=== PATIENT | female | born 1960 | race Caucasian/White ===

== ENCOUNTER 2017-06-01 20:24 | Inpatient (IN) | payer OTHER ==
[2017-06-01] MEDS ORDERED: NACL 0.9% 3 ML SYG IV (23:00)
[2017-06-01 23:46] LABS: ADD MAN DIFF? NO
[2017-06-01 23:49] LABS: BASOPHILS % 0.3 % (0.0-2.0); EOSINOPHILS # 0.2 10^3/ul (0.0-0.5); EOSINOPHILS % 1.8 % (0.0-7.0); HEMATOCRIT 25.7 % (37.0-47.0); LYMPHOCYTES % 18.4 % (15.0-51.0); MEAN CORPUSCULAR HEMOGLOBIN 27.3 pg (29.0-33.0); MEAN CORPUSCULAR HGB CONC 31.1 g/dl (32.0-37.0); MEAN CORPUSCULAR VOLUME 87.7 fl (82.0-101.0); MEAN PLATELET VOLUME 9.5 fl (7.4-10.4); MONOCYTE # 0.8 10^3/ul (0.3-0.9); MONOCYTES % 7.5 % (0.0-11.0); NEUTROPHIL # 7.8 10^3/ul (1.6-7.5); NEUTROPHILS % 70.7 % (39.0-77.0); PLATELET COUNT 322 10^3/UL (140-415); RED BLOOD COUNT 2.93 10^6/ul (4.20-5.40); RED CELL DISTRIBUTION WIDTH 14.1 % (11.5-14.5)
[2017-06-01 23:57] LABS: HEMOGLOBIN A1C 8.5 % (0-5.9)
[2017-06-02 00:12] LABS: CREATINE KINASE 26 IU/L (23-200)
[2017-06-02 00:16] LABS: ALANINE AMINOTRANSFERASE 63 IU/L (13-69); ALBUMIN 3.3 g/dl (3.3-4.9); ALBUMIN/GLOBULIN RATIO 1.06; ALKALINE PHOSPHATASE 249 IU/L (42-121); ANION GAP 18 (8-16); ASPARTATE AMINO TRANSFERASE 26 IU/L (15-46); BLOOD UREA NITROGEN 53 mg/dl (7-20); CALCIUM 8.9 mg/dl (8.4-10.2); CARBON DIOXIDE 26 mmol/L (21-31); CHLORIDE 103 mmol/L (97-110); CHOL/HDL RATIO 5.3 RATIO; CHOLESTEROL 112 mg/dl (100-200); CREATININE 1.41 mg/dl (0.44-1.00); GLUCOSE 173 mg/dl (70-220); HDL CHOLESTEROL 21 mg/dl (37-92); LDL CHOLESTEROL,CALCULATED 59 mg/dl; MAGNESIUM 2.3 mg/dl (1.7-2.5); POTASSIUM 5.4 mmol/L (3.5-5.1); SODIUM 142 mmol/L (135-144); TOTAL PROTEIN 6.4 g/dl (6.1-8.1); TRIGLYCERIDES 161 mg/dl (0-149)
[2017-06-02 00:23] LABS: CK INDEX 2.1; CK-MB 0.54 ng/ml (0.0-2.4)
[2017-06-02 00:28] LABS: TROPONIN-I < 0.012 ng/ml (0.00-0.12)
[2017-06-02] MEDS: SOD CHLORIDE 0.9% 1,000 ML IV ×2 (00:55→12:30)
[2017-06-02] MEDS ORDERED: TEMAZEPAM 15 MG CAP PO (02:30)
[2017-06-02] MEDS: NA POLYST SULFON 15 GM/60 ML BTL PO (03:25)
[2017-06-02] MEDS: morphine 2 MG INJ IV (03:26)
[2017-06-02] MEDS: ONDANSETRON 4 MG INJ IV (03:26)
[2017-06-02 06:11] LABS: LACTIC ACID 1.1 mmol/L (0.5-2.0)
[2017-06-02 06:18] LABS: CREATINE KINASE 29 IU/L (23-200); IRON 33 ug/dl (35-150)
[2017-06-02 06:27] LABS: % IRON SATURATION 15 % SAT (22-52); TOTAL IRON BINDING CAPACITY 227 ug/dl (241-421)
[2017-06-02 06:31] LABS: CK INDEX 2.7; CK-MB 0.79 ng/ml (0.0-2.4)
[2017-06-02 06:33] LABS: TROPONIN-I < 0.012 ng/ml (0.00-0.12)
[2017-06-02 06:33] LABS: D-DIMER 1879.59 ng/ml (<460)
[2017-06-02] MEDS: PANTOPRAZOLE (EC) 40 MG TAB PO (06:50)
[2017-06-02 08:59] LABS: GAMMA GLUTAMYL TRANSPEPTIDASE 100 IU/L (0-50)
[2017-06-02] MEDS ORDERED: HEPARIN 1000 UNITS/ML 10 ML INJ IV ×2 (09:00)
[2017-06-02 09:11] LABS: B-TYPE NATRIURETIC PEPTIDE 345 PG/ML (0-125)
[2017-06-02] MEDS: INSULIN ASPART [NOVOLOG] 3 ML PEN SC ×4 (09:24→20:44)
[2017-06-02] MEDS: INSULIN GLARGINE [LANtus] 3 ML PEN SC (09:49)
[2017-06-02] MEDS: SOD CHLORIDE 0.9% 100 ML (09:58)
[2017-06-02] MEDS: IODIXANOL LOCM 100 ML BTL (10:00)
[2017-06-02] MEDS: NYSTATIN 30 GM POWDER BTL TOP ×3 (10:12→20:43)
[2017-06-02] MEDS: ESCITALOPRAM 10 MG TAB PO (10:12)
[2017-06-02] MEDS: GEMFIBROZIL 600 MG TAB PO ×2 (10:13→20:43)
[2017-06-02] MEDS: ASPIRIN 81 MG TAB PO (10:14)
[2017-06-02] MEDS: ASPIRIN (EC) 81 MG TAB PO (10:14)
[2017-06-02] MEDS: ARIPIPRAZOLE 5 MG TAB PO (10:14)
[2017-06-02] MEDS: BENZTROPINE 1 MG TAB PO ×2 (10:14→20:43)
[2017-06-02] MEDS: FOLIC ACID 1 MG TAB PO (10:14)
[2017-06-02] MEDS: METOPROLOL (XL) 25 MG TAB PO (10:15)
[2017-06-02] MEDS: LAMOTRIGINE 100 MG TAB PO ×2 (10:15→20:43)
[2017-06-02] MEDS: AMLODIPINE 5 MG TAB PO (10:15)
[2017-06-02] MEDS: ALBUTEROL HFA 8 GM INHALER INH ×2 (10:21→20:00)
[2017-06-02] MEDS: HEPARIN 1000 UNITS/ML 10 ML INJ IV (10:37)
[2017-06-02] MEDS: HEPARIN 25000 UNITS/250 ML 250 ML IV (10:37)
[2017-06-02] MEDS ORDERED: morphine LIQ (10 MG/5 ML) CUP PO (14:00)
[2017-06-02 15:37] LABS: TROPONIN-I < 0.012 ng/ml (0.00-0.12)
[2017-06-02] MEDS: ATORVASTATIN 40 MG TAB PO (20:42)
[2017-06-02] MEDS: FERROUS SULFATE (EC) 325 MG TAB PO (20:42)
[2017-06-02] MEDS: RANITIDINE 150 MG TAB PO (20:42)
[2017-06-02] MEDS: RISPERIDONE 1 MG TAB PO (20:43)
[2017-06-02 22:33] LABS: ADD UMIC YES; UR ASCORBIC ACID NEGATIVE (NEGATIVE); UR BACTERIA FEW /HPF (NONE SEEN); UR BILIRUBIN (Dip) NEGATIVE (NEGATIVE); UR BLOOD (Dip) NEGATIVE (NEGATIVE); UR CLARITY CLEAR (CLEAR); UR COLOR YELLOW (YELLOW); UR GLUCOSE (Dip) NEGATIVE (NEGATIVE); UR KETONES (Dip) NEGATIVE (NEGATIVE); UR LEUKOCYTE ESTERASE (Dip) 2+ Leu/ul (NEGATIVE); UR MUCUS FEW /HPF (NONE SEEN); UR NITRITE (Dip) POSITIVE (NEGATIVE); UR RBC 1 /HPF (0-5); UR SPECIFIC GRAVITY (Dip) 1.024 (1.003-1.030); UR SQUAMOUS EPITHELIAL CELL FEW /HPF (FEW); UR TOTAL PROTEIN (Dip) NEGATIVE (NEGATIVE); UR UROBILINOGEN (Dip) NEGATIVE (NEGATIVE); UR WBC 22 /HPF (0-5)
[2017-06-02 22:48] LABS: CREATININE,URINE RANDOM 75.97 mg/dl (20-320)
[2017-06-02 22:48] LABS: SODIUM,URINE RANDOM 59 mmol/L (30-90)
[2017-06-03] MEDS: ACCU-CHEK XX (01:53)
[2017-06-03] MEDS: ALBUTEROL HFA 8 GM INHALER INH ×3 (02:00→20:17)
[2017-06-03] MEDS: PANTOPRAZOLE (EC) 40 MG TAB PO (06:29)
[2017-06-03 07:20] LABS: ADD MAN DIFF? NO
[2017-06-03 07:23] LABS: WHITE BLOOD COUNT 10.3 10^3/ul (4.8-10.8)
[2017-06-03 07:23] LABS: BASOPHILS % 0.3 % (0.0-2.0); EOSINOPHILS # 0.4 10^3/ul (0.0-0.5); EOSINOPHILS % 4.2 % (0.0-7.0); HEMATOCRIT 26.9 % (37.0-47.0); LYMPHOCYTES # 2.1 10^3/ul (0.8-2.9); LYMPHOCYTES % 20.4 % (15.0-51.0); MEAN CORPUSCULAR HEMOGLOBIN 27.3 pg (29.0-33.0); MEAN CORPUSCULAR HGB CONC 29.7 g/dl (32.0-37.0); MEAN CORPUSCULAR VOLUME 91.8 fl (82.0-101.0); MEAN PLATELET VOLUME 9.3 fl (7.4-10.4); MONOCYTE # 0.8 10^3/ul (0.3-0.9); MONOCYTES % 7.7 % (0.0-11.0); NEUTROPHIL # 6.7 10^3/ul (1.6-7.5); NEUTROPHILS % 65.6 % (39.0-77.0); PLATELET COUNT 334 10^3/UL (140-415); RED BLOOD COUNT 2.93 10^6/ul (4.20-5.40); RED CELL DISTRIBUTION WIDTH 14.4 % (11.5-14.5)
[2017-06-03 07:46] LABS: ANION GAP 14 (8-16); BLOOD UREA NITROGEN 43 mg/dl (7-20); CALCIUM 9.5 mg/dl (8.4-10.2); CARBON DIOXIDE 32 mmol/L (21-31); CHLORIDE 104 mmol/L (97-110); CREATININE 1.31 mg/dl (0.44-1.00); GLUCOSE 135 mg/dl (70-220); MAGNESIUM 2.2 mg/dl (1.7-2.5); PHOSPHORUS 4.3 mg/dl (2.5-4.9); POTASSIUM 5.4 mmol/L (3.5-5.1); SODIUM 145 mmol/L (135-144)
[2017-06-03] MEDS: FERROUS SULFATE (EC) 325 MG TAB PO ×2 (08:42→20:04)
[2017-06-03] MEDS: ARIPIPRAZOLE 5 MG TAB PO (08:42)
[2017-06-03] MEDS: ESCITALOPRAM 10 MG TAB PO (08:42)
[2017-06-03] MEDS: ASPIRIN (EC) 81 MG TAB PO (08:42)
[2017-06-03] MEDS: GEMFIBROZIL 600 MG TAB PO ×2 (08:42→20:03)
[2017-06-03] MEDS: METOPROLOL (XL) 25 MG TAB PO (08:43)
[2017-06-03] MEDS: LAMOTRIGINE 100 MG TAB PO ×2 (08:43→20:03)
[2017-06-03] MEDS: ASPIRIN 81 MG TAB PO (08:43)
[2017-06-03] MEDS: FOLIC ACID 1 MG TAB PO (08:43)
[2017-06-03] MEDS: AMLODIPINE 5 MG TAB PO (08:43)
[2017-06-03] MEDS: BENZTROPINE 1 MG TAB PO ×2 (08:43→20:03)
[2017-06-03] MEDS: NYSTATIN 30 GM POWDER BTL TOP ×2 (08:44→20:06)
[2017-06-03] MEDS: INSULIN ASPART [NOVOLOG] 3 ML PEN SC ×4 (08:59→20:13)
[2017-06-03] MEDS: INSULIN GLARGINE [LANtus] 3 ML PEN SC (09:00)
[2017-06-03] MEDS: CALCIUM/VITAMIN D (500/200) TAB PO (20:03)
[2017-06-03] MEDS: RISPERIDONE 1 MG TAB PO (20:04)
[2017-06-03] MEDS: ACETAMINOPHEN 325 MG TAB PO (20:04)
[2017-06-03] MEDS: RANITIDINE 150 MG TAB PO (20:04)
[2017-06-03] MEDS: ATORVASTATIN 40 MG TAB PO (20:04)
[2017-06-04] MEDS: ACCU-CHEK XX (02:00)
[2017-06-04] MEDS: ALBUTEROL HFA 8 GM INHALER INH ×4 (02:00→20:47)
[2017-06-04 06:27] LABS: ADD MAN DIFF? NO
[2017-06-04 06:36] LABS: WHITE BLOOD COUNT 10.1 10^3/ul (4.8-10.8)
[2017-06-04 06:36] LABS: BASOPHILS % 0.4 % (0.0-2.0); EOSINOPHILS # 0.6 10^3/ul (0.0-0.5); EOSINOPHILS % 5.9 % (0.0-7.0); HEMATOCRIT 28.7 % (37.0-47.0); HEMOGLOBIN 8.6 g/dl (12.0-16.0); LYMPHOCYTES # 2.7 10^3/ul (0.8-2.9); LYMPHOCYTES % 27.1 % (15.0-51.0); MEAN CORPUSCULAR VOLUME 90.3 fl (82.0-101.0); MEAN PLATELET VOLUME 9.3 fl (7.4-10.4); MONOCYTE # 0.7 10^3/ul (0.3-0.9); MONOCYTES % 6.7 % (0.0-11.0); NEUTROPHIL # 5.8 10^3/ul (1.6-7.5); NEUTROPHILS % 57.7 % (39.0-77.0); PLATELET COUNT 342 10^3/UL (140-415); RED BLOOD COUNT 3.18 10^6/ul (4.20-5.40); RED CELL DISTRIBUTION WIDTH 14.2 % (11.5-14.5)
[2017-06-04 07:02] LABS: ANION GAP 17 (8-16); BLOOD UREA NITROGEN 40 mg/dl (7-20); CALCIUM 9.6 mg/dl (8.4-10.2); CARBON DIOXIDE 29 mmol/L (21-31); CHLORIDE 106 mmol/L (97-110); CREATININE 1.37 mg/dl (0.44-1.00); GLUCOSE 157 mg/dl (70-220); MAGNESIUM 2.1 mg/dl (1.7-2.5); PHOSPHORUS 4.6 mg/dl (2.5-4.9); SODIUM 147 mmol/L (135-144)
[2017-06-04 07:04] LABS: POTASSIUM 5.3 mmol/L (3.5-5.1)
[2017-06-04] MEDS: CYANOCOBALAMIN 100 MCG TAB PO (08:43)
[2017-06-04] MEDS: LAMOTRIGINE 100 MG TAB PO ×2 (08:43→20:51)
[2017-06-04] MEDS: ASPIRIN (EC) 81 MG TAB PO (08:44)
[2017-06-04] MEDS: ESCITALOPRAM 10 MG TAB PO (08:44)
[2017-06-04] MEDS: GEMFIBROZIL 600 MG TAB PO ×2 (08:44→20:49)
[2017-06-04] MEDS: BENZTROPINE 1 MG TAB PO ×2 (08:44→20:51)
[2017-06-04] MEDS: PANTOPRAZOLE (EC) 40 MG TAB PO (08:45)
[2017-06-04] MEDS: ARIPIPRAZOLE 5 MG TAB PO (08:45)
[2017-06-04] MEDS: FOLIC ACID 1 MG TAB PO (08:45)
[2017-06-04] MEDS: FERROUS SULFATE (EC) 325 MG TAB PO ×2 (08:45→20:48)
[2017-06-04] MEDS: AMLODIPINE 5 MG TAB PO (08:45)
[2017-06-04] MEDS: METOPROLOL (XL) 25 MG TAB PO (08:46)
[2017-06-04] MEDS: INSULIN ASPART [NOVOLOG] 3 ML PEN SC ×4 (08:47→20:54)
[2017-06-04] MEDS: INSULIN GLARGINE [LANtus] 3 ML PEN SC (08:48)
[2017-06-04] MEDS: NYSTATIN 30 GM POWDER BTL TOP ×2 (11:40→20:52)
[2017-06-04] MEDS: CALCIUM/VITAMIN D (500/200) TAB PO ×2 (11:48→20:49)
[2017-06-04 14:38] LABS: CREATININE, RANDOM URINE 86 mg/dL (20-320); MICROALBUMIN 1.4 mg/dL; MICROALBUMIN/CREATININE RATIO 16 (<30)
[2017-06-04] MEDS: SOD CHLORIDE 0.9% 1,000 ML IV (19:00)
[2017-06-04] MEDS: ACETAMINOPHEN 325 MG TAB PO (20:47)
[2017-06-04] MEDS: RISPERIDONE 1 MG TAB PO (20:48)
[2017-06-04] MEDS: ATORVASTATIN 40 MG TAB PO (20:49)
[2017-06-04] MEDS: RANITIDINE 150 MG TAB PO (20:50)
[2017-06-04] MEDS: morphine 2 MG INJ IV (22:49)
[2017-06-04] MEDS: NITROGLYCERIN (SL) 0.4 MG TAB SL (22:59)
[2017-06-04 23:55] LABS: CREATINE KINASE 23 IU/L (23-200)
[2017-06-05] MEDS ORDERED: NITROGLYCERIN (SL) 0.4 MG TAB SL
[2017-06-05 00:08] LABS: CK INDEX 2.7; CK-MB 0.62 ng/ml (0.0-2.4)
[2017-06-05 00:14] LABS: TROPONIN-I < 0.012 ng/ml (0.00-0.12)
[2017-06-05] MEDS: ACCU-CHEK XX (02:16)
[2017-06-05] MEDS: ALBUTEROL HFA 8 GM INHALER INH ×3 (02:16→14:57)
[2017-06-05] MEDS: SOD CHLORIDE 0.9% 1,000 ML IV ×2 (05:00→14:59)
[2017-06-05] MEDS: PANTOPRAZOLE (EC) 40 MG TAB PO (05:03)
[2017-06-05 07:24] LABS: CREATINE KINASE 21 IU/L (23-200)
[2017-06-05 07:36] LABS: CK-MB 0.84 ng/ml (0.0-2.4)
[2017-06-05 07:41] LABS: TROPONIN-I < 0.012 ng/ml (0.00-0.12)
[2017-06-05] MEDS: INSULIN ASPART [NOVOLOG] 3 ML PEN SC ×4 (07:55→20:54)
[2017-06-05] MEDS: CALCIUM/VITAMIN D (500/200) TAB PO ×2 (09:00→20:40)
[2017-06-05] MEDS: GEMFIBROZIL 600 MG TAB PO ×3 (09:00→20:40)
[2017-06-05] MEDS: FERROUS SULFATE (EC) 325 MG TAB PO ×3 (09:00→20:39)
[2017-06-05] MEDS: ASPIRIN (EC) 81 MG TAB PO ×2 (09:00→15:36)
[2017-06-05] MEDS: CYANOCOBALAMIN 100 MCG TAB PO ×2 (09:00→15:35)
[2017-06-05] MEDS: ARIPIPRAZOLE 5 MG TAB PO ×2 (09:00→15:35)
[2017-06-05] MEDS: ESCITALOPRAM 10 MG TAB PO ×2 (09:00→15:36)
[2017-06-05] MEDS: BENZTROPINE 1 MG TAB PO ×2 (09:00→20:40)
[2017-06-05] MEDS: INSULIN GLARGINE [LANtus] 3 ML PEN SC ×2 (09:00→10:04)
[2017-06-05] MEDS: FOLIC ACID 1 MG TAB PO (09:00)
[2017-06-05] MEDS: METOPROLOL (XL) 25 MG TAB PO ×2 (09:00→15:37)
[2017-06-05] MEDS: LAMOTRIGINE 100 MG TAB PO ×2 (09:00→21:30)
[2017-06-05] MEDS: AMLODIPINE 5 MG TAB PO ×2 (09:00→15:36)
[2017-06-05] MEDS: NYSTATIN 30 GM POWDER BTL TOP ×2 (09:46→21:30)
[2017-06-05] MEDS: REGADENOSON 0.4 MG/5 ML SYG (12:30)
[2017-06-05 14:18] LABS: ANION GAP 18 (8-16); BLOOD UREA NITROGEN 35 mg/dl (7-20); CALCIUM 9.4 mg/dl (8.4-10.2); CARBON DIOXIDE 27 mmol/L (21-31); CHLORIDE 106 mmol/L (97-110); CREATININE 1.29 mg/dl (0.44-1.00); GLUCOSE 123 mg/dl (70-220); POTASSIUM 5.5 mmol/L (3.5-5.1); SODIUM 145 mmol/L (135-144)
[2017-06-05] MEDS: hydrALAzine 20 MG INJ IV (18:34)
[2017-06-05] MEDS: RISPERIDONE 1 MG TAB PO (20:39)
[2017-06-05] MEDS: RANITIDINE 150 MG TAB PO (20:40)
[2017-06-05] MEDS: ATORVASTATIN 40 MG TAB PO (20:40)
[2017-06-06] MEDS: ACCU-CHEK XX (02:00)
[2017-06-06] MEDS: ALBUTEROL HFA 8 GM INHALER INH ×5 (02:00→20:08)
[2017-06-06 06:46] LABS: ANION GAP 18 (8-16); BLOOD UREA NITROGEN 26 mg/dl (7-20); CALCIUM 9.5 mg/dl (8.4-10.2); CARBON DIOXIDE 27 mmol/L (21-31); CHLORIDE 105 mmol/L (97-110); CREATININE 1.04 mg/dl (0.44-1.00); GLUCOSE 128 mg/dl (70-220); MAGNESIUM 1.5 mg/dl (1.7-2.5); PHOSPHORUS 3.5 mg/dl (2.5-4.9); POTASSIUM 5.6 mmol/L (3.5-5.1); SODIUM 144 mmol/L (135-144)
[2017-06-06] MEDS: INSULIN ASPART [NOVOLOG] 3 ML PEN SC ×4 (07:43→21:21)
[2017-06-06] MEDS: CYANOCOBALAMIN 100 MCG TAB PO (08:43)
[2017-06-06] MEDS: ESCITALOPRAM 10 MG TAB PO (08:43)
[2017-06-06] MEDS: PANTOPRAZOLE (EC) 40 MG TAB PO (08:43)
[2017-06-06] MEDS: ARIPIPRAZOLE 5 MG TAB PO (08:43)
[2017-06-06] MEDS: LAMOTRIGINE 100 MG TAB PO ×2 (08:44→21:08)
[2017-06-06] MEDS: BENZTROPINE 1 MG TAB PO ×2 (08:44→21:08)
[2017-06-06] MEDS: FERROUS SULFATE (EC) 325 MG TAB PO ×2 (08:44→21:07)
[2017-06-06] MEDS: FOLIC ACID 1 MG TAB PO (08:44)
[2017-06-06] MEDS: METOPROLOL (XL) 25 MG TAB PO (08:45)
[2017-06-06] MEDS: GEMFIBROZIL 600 MG TAB PO ×2 (08:46→21:07)
[2017-06-06] MEDS: AMLODIPINE 5 MG TAB PO (08:46)
[2017-06-06] MEDS: ASPIRIN (EC) 81 MG TAB PO (08:46)
[2017-06-06] MEDS: CALCIUM/VITAMIN D (500/200) TAB PO ×2 (08:46→21:08)
[2017-06-06] MEDS: NYSTATIN 30 GM POWDER BTL TOP ×2 (08:47→21:09)
[2017-06-06] MEDS: INSULIN GLARGINE [LANtus] 3 ML PEN SC (10:04)
[2017-06-06] MEDS: NA POLYST SULFON 15 GM/60 ML BTL PO (10:22)
[2017-06-06] MEDS ORDERED: HYDROCHLOROTHIAZIDE 12.5 MG CAP PO (12:30)
[2017-06-06] MEDS: HYDROCHLOROTHIAZIDE 25 MG TAB PO (12:52)
[2017-06-06] MEDS: MAGNESIUM SULFATE 4 GM/100 ML 100 ML IVPB (13:20)
[2017-06-06 18:05] LABS: ANION GAP 19 (8-16); BLOOD UREA NITROGEN 26 mg/dl (7-20); CALCIUM 9.2 mg/dl (8.4-10.2); CARBON DIOXIDE 27 mmol/L (21-31); CHLORIDE 105 mmol/L (97-110); CREATININE 1.16 mg/dl (0.44-1.00); GLUCOSE 169 mg/dl (70-220); POTASSIUM 5.6 mmol/L (3.5-5.1); SODIUM 145 mmol/L (135-144)
[2017-06-06 20:24] LABS: POTASSIUM,URINE RANDOM 24.8 mmol/L (25-125)
[2017-06-06] MEDS: RANITIDINE 150 MG TAB PO (21:07)
[2017-06-06] MEDS: RISPERIDONE 1 MG TAB PO (21:08)
[2017-06-06] MEDS: ATORVASTATIN 40 MG TAB PO (21:08)
[2017-06-07] MEDS: ACCU-CHEK XX (02:00)
[2017-06-07] MEDS: ALBUTEROL HFA 8 GM INHALER INH ×3 (02:03→14:58)
[2017-06-07 06:11] LABS: ADD MAN DIFF? NO
[2017-06-07 06:26] LABS: BASOPHILS % 0.3 % (0.0-2.0); EOSINOPHILS # 0.4 10^3/ul (0.0-0.5); EOSINOPHILS % 4.5 % (0.0-7.0); HEMATOCRIT 27.1 % (37.0-47.0); HEMOGLOBIN 8.2 g/dl (12.0-16.0); LYMPHOCYTES # 1.8 10^3/ul (0.8-2.9); LYMPHOCYTES % 19.7 % (15.0-51.0); MEAN CORPUSCULAR HEMOGLOBIN 27.2 pg (29.0-33.0); MEAN CORPUSCULAR HGB CONC 30.3 g/dl (32.0-37.0); MEAN PLATELET VOLUME 9.2 fl (7.4-10.4); MONOCYTE # 0.6 10^3/ul (0.3-0.9); MONOCYTES % 6.9 % (0.0-11.0); NEUTROPHIL # 6.1 10^3/ul (1.6-7.5); NEUTROPHILS % 67.4 % (39.0-77.0); PLATELET COUNT 246 10^3/UL (140-415); RED BLOOD COUNT 3.01 10^6/ul (4.20-5.40); RED CELL DISTRIBUTION WIDTH 14.5 % (11.5-14.5)
[2017-06-07 06:26] LABS: WHITE BLOOD COUNT 9.1 10^3/ul (4.8-10.8)
[2017-06-07 06:55] LABS: ALANINE AMINOTRANSFERASE 65 IU/L (13-69); ALBUMIN 3.4 g/dl (3.3-4.9); ALBUMIN/GLOBULIN RATIO 0.94; ALKALINE PHOSPHATASE 195 IU/L (42-121); ANION GAP 17 (8-16); ASPARTATE AMINO TRANSFERASE 39 IU/L (15-46); BLOOD UREA NITROGEN 22 mg/dl (7-20); CALCIUM 9.4 mg/dl (8.4-10.2); CARBON DIOXIDE 30 mmol/L (21-31); CHLORIDE 105 mmol/L (97-110); CREATININE 1.15 mg/dl (0.44-1.00); GLUCOSE 200 mg/dl (70-220); POTASSIUM 5.4 mmol/L (3.5-5.1); SODIUM 147 mmol/L (135-144)
[2017-06-07 07:02] LABS: PHOSPHORUS 4.6 mg/dl (2.5-4.9)
[2017-06-07 07:02] LABS: MAGNESIUM 2.2 mg/dl (1.7-2.5)
[2017-06-07] MEDS: METOPROLOL (XL) 25 MG TAB PO (08:29)
[2017-06-07] MEDS: ASPIRIN (EC) 81 MG TAB PO (08:30)
[2017-06-07] MEDS: ARIPIPRAZOLE 5 MG TAB PO (08:30)
[2017-06-07] MEDS: FERROUS SULFATE (EC) 325 MG TAB PO (08:30)
[2017-06-07] MEDS: FOLIC ACID 1 MG TAB PO (08:30)
[2017-06-07] MEDS: AMLODIPINE 5 MG TAB PO (08:30)
[2017-06-07] MEDS: GEMFIBROZIL 600 MG TAB PO (08:30)
[2017-06-07] MEDS: ESCITALOPRAM 10 MG TAB PO (08:31)
[2017-06-07] MEDS: BENZTROPINE 1 MG TAB PO (08:31)
[2017-06-07] MEDS: CYANOCOBALAMIN 100 MCG TAB PO (08:31)
[2017-06-07] MEDS: CALCIUM/VITAMIN D (500/200) TAB PO (08:31)
[2017-06-07] MEDS: HYDROCHLOROTHIAZIDE 12.5 MG CAP PO (08:31)
[2017-06-07] MEDS: PANTOPRAZOLE (EC) 40 MG TAB PO (08:32)
[2017-06-07] MEDS: NYSTATIN 30 GM POWDER BTL TOP (08:32)
[2017-06-07] MEDS: LAMOTRIGINE 100 MG TAB PO (08:32)
[2017-06-07] MEDS: INSULIN GLARGINE [LANtus] 3 ML PEN SC (08:36)
[2017-06-07] MEDS: INSULIN ASPART [NOVOLOG] 3 ML PEN SC ×3 (08:38→18:08)
[2017-06-07] MEDS ORDERED: HYDROCHLOROTHIAZIDE 12.5 MG CAP PO (09:00)
[2017-06-07] MEDS: CIPROFLOXACIN 250 MG TAB PO (14:57)
[2017-06-07] MEDS: NA POLYST SULFON 15 GM/60 ML BTL PO (14:58)
[2017-06-08] MEDS ORDERED: ERGOCALCIFEROL 50,000 UNIT CAP PO (09:00)
== END 2017-06-07 19:00 | disposition home health service (06) | DRG 291 ==
LOC: TEL 20:24
PROVIDERS: Family Medicine
PROC: C22G1ZZ Tomographic (Tomo) Nuclear Medicine Imaging of Myocardium using Technetium 99m (Tc-99m) (ICD-10-PCS; principal; 2017-06-05)
PROC: 4A02XM4 Measurement of Cardiac Total Activity, External Approach (ICD-10-PCS; 2017-06-05)
PROC: 3E073KZ Introduction of Other Diagnostic Substance into Coronary Artery, Percutaneous Approach (ICD-10-PCS; 2017-06-05)
DX: I13.0 Hypertensive heart and chronic kidney disease with heart failure and stage 1 through stage 4 chronic kidney disease, or unspecified chronic kidney disease (principal); I50.33 Acute on chronic diastolic (congestive) heart failure; N17.9 Acute kidney failure, unspecified; Z68.42 Body mass index [BMI] 45.0-49.9, adult; E66.2 Morbid (severe) obesity with alveolar hypoventilation; N18.9 Chronic kidney disease, unspecified; E11.22 Type 2 diabetes mellitus with diabetic chronic kidney disease; E87.5 Hyperkalemia; F31.9 Bipolar disorder, unspecified; Z90.49 Acquired absence of other specified parts of digestive tract; G47.33 Obstructive sleep apnea (adult) (pediatric); F32.9 Major depressive disorder, single episode, unspecified; D64.9 Anemia, unspecified; I10 Essential (primary) hypertension; Z72.3 Lack of physical exercise; R10.84 Generalized abdominal pain
CPT/HCPCS: 71045; 71275; 74018; 76705; 76775; 78452; 80048; 80053; 80061; 81001; 82043; 82540; 82550; 82553; 82728; 82962; 82977; 83036; 83540; 83605; 83735; 83880; 84100; 84133; 84155; 84300; 84443; 84484; 85025; 85378; 87081; 93005; 93017; 93306; 93970; 94660; 94760; 97162; 99217; G0378

== ENCOUNTER 2018-03-24 19:51 | Inpatient (IN) | payer OTHER ==
[2018-03-24] MEDS: METHYLPREDNISOLONE 125 MG INJ IV (21:24)
[2018-03-24] MEDS: SOD CHLORIDE 0.9% 500 ML IV (21:24)
[2018-03-24] MEDS: CEFTRIAXONE 1 GM/50 ML (PMX) 50 ML IVPB (21:24)
[2018-03-24 21:31] LABS: ADD MAN DIFF? NO
[2018-03-24 21:33] LABS: WHITE BLOOD COUNT 6.5 10^3/ul (4.8-10.8)
[2018-03-24 21:33] LABS: BASOPHILS % 0.6 % (0.0-2.0); EOSINOPHILS % 15.7 % (0.0-7.0); HEMATOCRIT 31.1 % (37.0-47.0); HEMOGLOBIN 9.8 g/dl (12.0-16.0); LYMPHOCYTES # 1.8 10^3/ul (0.8-2.9); LYMPHOCYTES % 27.8 % (15.0-51.0); MEAN CORPUSCULAR HEMOGLOBIN 28.3 pg (29.0-33.0); MEAN CORPUSCULAR HGB CONC 31.5 g/dl (32.0-37.0); MEAN CORPUSCULAR VOLUME 89.9 fl (82.0-101.0); MEAN PLATELET VOLUME 10.1 fl (7.4-10.4); MONOCYTE # 0.6 10^3/ul (0.3-0.9); MONOCYTES % 8.5 % (0.0-11.0); NEUTROPHILS % 46.9 % (39.0-77.0); PLATELET COUNT 165 10^3/UL (140-415); RED BLOOD COUNT 3.46 10^6/ul (4.20-5.40); RED CELL DISTRIBUTION WIDTH 12.8 % (11.5-14.5)
[2018-03-24] MEDS: AZITHROMYCIN 500MG/NS (PMX) 250 ML IV (21:35)
[2018-03-24] MEDS: ALBUTEROL 0.5% (NEB) 2.5 MG/0.5 ML AMP INH (21:48)
[2018-03-24 21:54] LABS: ALANINE AMINOTRANSFERASE 27 IU/L (13-69); ALBUMIN 3.7 g/dl (3.3-4.9); ALBUMIN/GLOBULIN RATIO 1.08; ALKALINE PHOSPHATASE 189 IU/L (42-121); ANION GAP 13 (5-13); ASPARTATE AMINO TRANSFERASE 23 IU/L (15-46); BLOOD UREA NITROGEN 24 mg/dl (7-20); CALCIUM 9.2 mg/dl (8.4-10.2); CARBON DIOXIDE 23 mmol/L (21-31); CHLORIDE 103 mmol/L (97-110); CREATININE 0.95 mg/dl (0.44-1.00); Estimated GFR > 60 mL/min (>60); GLUCOSE 185 mg/dl (70-220); POTASSIUM 3.9 mmol/L (3.5-5.1); SODIUM 139 mmol/L (135-144); TOTAL PROTEIN 7.1 g/dl (6.1-8.1)
[2018-03-24 22:05] LABS: TROPONIN-I < 0.012 ng/ml (0.000-0.120)
[2018-03-25] MEDS ORDERED: LEVALBUTEROL (NEB) 1.25 MG/0.5 ML AMP HHN (00:30)
[2018-03-25] MEDS ORDERED: ONDANSETRON 4 MG INJ IV (00:30)
[2018-03-25] MEDS ORDERED: NACL 0.9% 3 ML SYG IV (00:30)
[2018-03-25] MEDS ORDERED: ACETAMINOPHEN 325 MG TAB PO (00:30)
[2018-03-25] MEDS ORDERED: BISACODYL (EC) 5 MG TAB PO (00:30)
[2018-03-25] MEDS ORDERED: DOCUSATE SODIUM 100 MG CAP PO (00:30)
[2018-03-25] MEDS: ALBUTEROL/IPRATROPIUM (NEB) 3 ML AMP HHN ×6 (02:09→20:47)
[2018-03-25] MEDS: clonAZEPAM 0.5 MG TAB PO ×4 (03:34→17:31)
[2018-03-25] MEDS ORDERED: GLUCOSE GEL 15 GRAM TUBE PO ×2 (05:30)
[2018-03-25] MEDS ORDERED: GLUCAGON 1 MG INJ IM (05:30)
[2018-03-25] MEDS ORDERED: DEXTROSE 50% 50 ML SYRINGE IV ×2 (05:30)
[2018-03-25] MEDS ORDERED: GLUCOSE GEL 15 GRAM TUBE BUCCAL (05:30)
[2018-03-25] MEDS: PANTOPRAZOLE (EC) 40 MG TAB PO (05:55)
[2018-03-25] MEDS: METHYLPREDNISOLONE 125 MG INJ IV (05:55)
[2018-03-25] MEDS: FUROSEMIDE 40 MG INJ IV (06:03)
[2018-03-25 06:37] LABS: CARBAMAZEPINE (TEGRETOL) 6.5 ug/ml (8.0-12.0)
[2018-03-25 07:28] LABS: B-TYPE NATRIURETIC PEPTIDE 251 PG/ML (0-125)
[2018-03-25] MEDS: INSULIN ASPART [NOVOLOG] 3 ML PEN SC ×6 (08:20→21:00)
[2018-03-25] MEDS ORDERED: NON-FORMULARY/PATIENT OWN MED (Omeprazole* 20 MG) PO (09:00)
[2018-03-25] MEDS: GEMFIBROZIL 600 MG TAB PO ×2 (09:30→21:58)
[2018-03-25] MEDS: FOLIC ACID 1 MG TAB PO (09:30)
[2018-03-25] MEDS: ASPIRIN (EC) 81 MG TAB PO (09:30)
[2018-03-25] MEDS: ENOXAPARIN 30 MG/0.3 ML SYG SC (09:33)
[2018-03-25] MEDS: carBAMAZepine (XR) 200 MG TABSR PO ×2 (10:16→22:00)
[2018-03-25] MEDS: FLUTICASONE/VILANTEROL 200-25 INH DEVICE INH (12:51)
[2018-03-25] MEDS: LEVOFLOXACIN 500 MG TAB PO (12:51)
[2018-03-25] MEDS: LOSARTAN 25 MG TAB PO ×2 (12:52→22:00)
[2018-03-25] MEDS: INSULIN GLARGINE [LANTus] (100 UNITS/ML) SYG SC (14:56)
[2018-03-25] MEDS: DILTIAZEM 25 MG INJ IV ×2 (21:51→22:49)
[2018-03-25] MEDS: morphine 4 MG/ML VIAL IV (21:57)
[2018-03-25] MEDS: ATORVASTATIN 40 MG TAB PO (21:58)
[2018-03-25] MEDS: MONTELUKAST 10 MG TAB PO (21:58)
[2018-03-25] MEDS: METHYLPREDNISOLONE 40 MG INJ IV (21:58)
[2018-03-25] MEDS: QUETIAPINE 100 MG TAB PO (21:59)
[2018-03-25] MEDS: GUAIFENESIN/CODEINE 5ML CUP PO (22:01)
[2018-03-25] MEDS: ACETAMINOPHEN 325 MG TAB PO (22:02)
[2018-03-25] MEDS: HEPARIN 5,000 UNIT/1 ML VIAL SC (22:05)
[2018-03-25] MEDS: RISPERIDONE 2 MG TAB PO (22:23)
[2018-03-26] MEDS: clonAZEPAM 0.5 MG TAB PO ×4 (00:15→18:05)
[2018-03-26] MEDS: POTASSIUM CHLORIDE (SR) 20 MEQ TAB PO ×2 (00:15→04:05)
[2018-03-26] MEDS: MAGNESIUM SULFATE 1 GM/D5W 100 ML IVPB (00:17)
[2018-03-26] MEDS: ENOXAPARIN 60 MG/0.6 ML SYG SC (00:20)
[2018-03-26] MEDS: IPRATROPIUM (NEB) 0.5 MG/2.5 ML AMP HHN ×6 (01:07→20:11)
[2018-03-26] MEDS: LEVALBUTEROL (NEB) 1.25 MG/0.5 ML AMP HHN ×6 (01:07→20:11)
[2018-03-26] MEDS: DILTIAZEM-D5W 125MG/125ML DRIP 125 ML IV (01:17)
[2018-03-26] MEDS: ACCU-CHEK XX (02:04)
[2018-03-26] MEDS: morphine 4 MG/ML VIAL IV (03:08)
[2018-03-26 03:13] LABS: ADD MAN DIFF? NO
[2018-03-26 03:17] LABS: WHITE BLOOD COUNT 6.2 10^3/ul (4.8-10.8)
[2018-03-26 03:17] LABS: BASOPHILS % 0.2 % (0.0-2.0); EOSINOPHILS % 0.2 % (0.0-7.0); HEMATOCRIT 30.2 % (37.0-47.0); HEMOGLOBIN 9.7 g/dl (12.0-16.0); LYMPHOCYTES # 1.1 10^3/ul (0.8-2.9); LYMPHOCYTES % 17.2 % (15.0-51.0); MEAN CORPUSCULAR HEMOGLOBIN 28.6 pg (29.0-33.0); MEAN CORPUSCULAR HGB CONC 32.1 g/dl (32.0-37.0); MEAN CORPUSCULAR VOLUME 89.1 fl (82.0-101.0); MEAN PLATELET VOLUME 10.3 fl (7.4-10.4); MONOCYTE # 0.3 10^3/ul (0.3-0.9); MONOCYTES % 4.2 % (0.0-11.0); NEUTROPHIL # 4.8 10^3/ul (1.6-7.5); NEUTROPHILS % 77.9 % (39.0-77.0); PLATELET COUNT 161 10^3/UL (140-415); RED BLOOD COUNT 3.39 10^6/ul (4.20-5.40); RED CELL DISTRIBUTION WIDTH 12.7 % (11.5-14.5)
[2018-03-26 03:26] LABS: HEMOGLOBIN A1C 8.6 % (0-5.9)
[2018-03-26 03:33] LABS: CREATINE KINASE 69 IU/L (23-200)
[2018-03-26 03:35] LABS: ALANINE AMINOTRANSFERASE 32 IU/L (13-69); ALBUMIN 3.6 g/dl (3.3-4.9); ALBUMIN/GLOBULIN RATIO 1.09; ALKALINE PHOSPHATASE 180 IU/L (42-121); ANION GAP 15 (5-13); ASPARTATE AMINO TRANSFERASE 24 IU/L (15-46); BLOOD UREA NITROGEN 33 mg/dl (7-20); CARBON DIOXIDE 22 mmol/L (21-31); CHLORIDE 99 mmol/L (97-110); CREATININE 1.11 mg/dl (0.44-1.00); Estimated GFR 50 mL/min (>60); GLUCOSE 337 mg/dl (70-220); MAGNESIUM 1.7 mg/dl (1.7-2.5); POTASSIUM 4.8 mmol/L (3.5-5.1); SODIUM 136 mmol/L (135-144); TOTAL PROTEIN 6.9 g/dl (6.1-8.1)
[2018-03-26 03:47] LABS: CK INDEX 1.6; CK-MB 1.13 ng/ml (0.0-2.4); TROPONIN-I 0.013 ng/ml (0.000-0.120)
[2018-03-26] MEDS: LIDOCAINE/MYLANTA 40 ML BTL PO (04:04)
[2018-03-26] MEDS: IODIXANOL LOCM 100 ML BTL (04:23)
[2018-03-26] MEDS: SOD CHLORIDE 0.9% 100 ML (04:23)
[2018-03-26 04:32] LABS: FREE T3 3.75 pg/ml (2.77-5.27); FREE T4 (FREE THYROXINE) 1.28 ng/dl (0.64-1.79)
[2018-03-26 04:54] LABS: THYROID STIMULATING HORMONE 0.454 MIU/L (0.465-4.680)
[2018-03-26] MEDS: LEVOFLOXACIN 500 MG TAB PO (06:39)
[2018-03-26] MEDS: PANTOPRAZOLE (EC) 40 MG TAB PO (06:39)
[2018-03-26] MEDS: GUAIFENESIN/CODEINE 5ML CUP PO (06:39)
[2018-03-26] MEDS: GEMFIBROZIL 600 MG TAB PO ×2 (08:56→20:38)
[2018-03-26] MEDS: ASPIRIN (EC) 81 MG TAB PO (08:56)
[2018-03-26] MEDS: LOSARTAN 25 MG TAB PO ×2 (08:56→20:39)
[2018-03-26] MEDS: carBAMAZepine (XR) 200 MG TABSR PO ×2 (08:56→20:39)
[2018-03-26] MEDS: FOLIC ACID 1 MG TAB PO (08:57)
[2018-03-26] MEDS: METHYLPREDNISOLONE 40 MG INJ IV (08:57)
[2018-03-26] MEDS: FLUTICASONE/VILANTEROL 200-25 INH DEVICE INH (08:58)
[2018-03-26 09:13] LABS: CREATINE KINASE 69 IU/L (23-200)
[2018-03-26] MEDS: INSULIN ASPART [NOVOLOG] 3 ML PEN SC ×8 (09:15→21:40)
[2018-03-26] MEDS: INSULIN GLARGINE [LANTus] (100 UNITS/ML) SYG SC (09:15)
[2018-03-26 09:26] LABS: CK INDEX 3.1; CK-MB 2.17 ng/ml (0.0-2.4); TROPONIN-I 0.022 ng/ml (0.000-0.120)
[2018-03-26] MEDS: ACETAMINOPHEN 325 MG TAB PO (10:14)
[2018-03-26] MEDS: METOPROLOL 25 MG TAB PO ×2 (11:17→20:38)
[2018-03-26] MEDS: RISPERIDONE 2 MG TAB PO (20:38)
[2018-03-26] MEDS: MONTELUKAST 10 MG TAB PO (20:38)
[2018-03-26] MEDS: ATORVASTATIN 40 MG TAB PO (20:38)
[2018-03-26] MEDS: QUETIAPINE 100 MG TAB PO (20:38)
[2018-03-26] MEDS ORDERED: VANCOMYCIN IV PER PHARMACY XX (22:00)
[2018-03-27] MEDS: clonAZEPAM 0.5 MG TAB PO ×5 (00:15→23:38)
[2018-03-27] MEDS: VANCOMYCIN HCL 2 GM in SOD CHLORIDE 0.9% 500 ML IVPB (00:15)
[2018-03-27] MEDS: LEVALBUTEROL (NEB) 1.25 MG/0.5 ML AMP HHN ×6 (00:40→20:09)
[2018-03-27] MEDS: IPRATROPIUM (NEB) 0.5 MG/2.5 ML AMP HHN ×6 (00:40→20:09)
[2018-03-27] MEDS: ENOXAPARIN 60 MG/0.6 ML SYG SC ×2 (00:47→23:53)
[2018-03-27] MEDS: ACCU-CHEK XX (02:22)
[2018-03-27] MEDS: LEVOFLOXACIN 500 MG TAB PO (06:06)
[2018-03-27] MEDS: PANTOPRAZOLE (EC) 40 MG TAB PO (06:06)
[2018-03-27 06:44] LABS: ANION GAP 15 (5-13); BLOOD UREA NITROGEN 36 mg/dl (7-20); CALCIUM 8.7 mg/dl (8.4-10.2); CARBON DIOXIDE 26 mmol/L (21-31); CHLORIDE 101 mmol/L (97-110); CREATININE 1.14 mg/dl (0.44-1.00); Estimated GFR 49 mL/min (>60); GLUCOSE 217 mg/dl (70-220); POTASSIUM 4.8 mmol/L (3.5-5.1); SODIUM 142 mmol/L (135-144)
[2018-03-27] MEDS: INSULIN GLARGINE [LANTus] (100 UNITS/ML) SYG SC (08:17)
[2018-03-27] MEDS: INSULIN ASPART [NOVOLOG] 3 ML PEN SC ×7 (08:17→21:32)
[2018-03-27] MEDS: DILTIAZEM-D5W 125MG/125ML DRIP 125 ML IV ×3 (08:57→17:04)
[2018-03-27] MEDS: predniSONE 20 MG TAB PO (08:58)
[2018-03-27] MEDS: carBAMAZepine (XR) 200 MG TABSR PO ×2 (08:58→21:10)
[2018-03-27] MEDS: FLUTICASONE/VILANTEROL 200-25 INH DEVICE INH (08:58)
[2018-03-27] MEDS: GEMFIBROZIL 600 MG TAB PO ×2 (08:59→21:10)
[2018-03-27] MEDS: FOLIC ACID 1 MG TAB PO (08:59)
[2018-03-27] MEDS: ASPIRIN (EC) 81 MG TAB PO (08:59)
[2018-03-27] MEDS: METOPROLOL 25 MG TAB PO (08:59)
[2018-03-27] MEDS: LOSARTAN 25 MG TAB PO ×2 (08:59→21:12)
[2018-03-27] MEDS: QUETIAPINE 100 MG TAB PO (21:10)
[2018-03-27] MEDS: ATORVASTATIN 40 MG TAB PO (21:10)
[2018-03-27] MEDS: RISPERIDONE 2 MG TAB PO (21:12)
[2018-03-27] MEDS: METOPROLOL 50 MG TAB PO (21:12)
[2018-03-27] MEDS: GUAIFENESIN/CODEINE 5ML CUP PO (21:19)
[2018-03-27] MEDS: VANCOMYCIN HCL 1.75 GM in SOD CHLORIDE 0.9% 500 ML IVPB (21:19)
[2018-03-27] MEDS: MONTELUKAST 10 MG TAB PO (21:19)
[2018-03-28] MEDS: LEVALBUTEROL (NEB) 1.25 MG/0.5 ML AMP HHN ×6 (00:08→20:32)
[2018-03-28] MEDS: IPRATROPIUM (NEB) 0.5 MG/2.5 ML AMP HHN ×6 (00:08→20:32)
[2018-03-28] MEDS: ACCU-CHEK XX (02:39)
[2018-03-28] MEDS: LEVOFLOXACIN 500 MG TAB PO (05:46)
[2018-03-28] MEDS: clonAZEPAM 0.5 MG TAB PO ×3 (05:46→17:47)
[2018-03-28] MEDS: PANTOPRAZOLE (EC) 40 MG TAB PO (05:46)
[2018-03-28 06:18] LABS: ADD MAN DIFF? NO
[2018-03-28 06:24] LABS: WHITE BLOOD COUNT 4.9 10^3/ul (4.8-10.8)
[2018-03-28 06:24] LABS: BASOPHILS % 0.4 % (0.0-2.0); EOSINOPHILS % 0.4 % (0.0-7.0); HEMATOCRIT 29.5 % (37.0-47.0); HEMOGLOBIN 9.2 g/dl (12.0-16.0); LYMPHOCYTES # 1.9 10^3/ul (0.8-2.9); LYMPHOCYTES % 38.3 % (15.0-51.0); MEAN CORPUSCULAR HEMOGLOBIN 28.1 pg (29.0-33.0); MEAN CORPUSCULAR HGB CONC 31.2 g/dl (32.0-37.0); MEAN CORPUSCULAR VOLUME 90.2 fl (82.0-101.0); MEAN PLATELET VOLUME 10.2 fl (7.4-10.4); MONOCYTE # 0.4 10^3/ul (0.3-0.9); MONOCYTES % 7.7 % (0.0-11.0); NEUTROPHIL # 2.6 10^3/ul (1.6-7.5); PLATELET COUNT 148 10^3/UL (140-415); RED BLOOD COUNT 3.27 10^6/ul (4.20-5.40); RED CELL DISTRIBUTION WIDTH 12.8 % (11.5-14.5)
[2018-03-28 07:26] LABS: ANION GAP 15 (5-13); BLOOD UREA NITROGEN 32 mg/dl (7-20); CALCIUM 8.6 mg/dl (8.4-10.2); CARBON DIOXIDE 24 mmol/L (21-31); CHLORIDE 101 mmol/L (97-110); CREATININE 0.99 mg/dl (0.44-1.00); Estimated GFR 57 mL/min (>60); GLUCOSE 196 mg/dl (70-220); MAGNESIUM 1.9 mg/dl (1.7-2.5); POTASSIUM 4.7 mmol/L (3.5-5.1); SODIUM 140 mmol/L (135-144)
[2018-03-28] MEDS: INSULIN ASPART [NOVOLOG] 3 ML PEN SC ×8 (07:56→22:26)
[2018-03-28] MEDS: INSULIN GLARGINE [LANTus] (100 UNITS/ML) SYG SC (08:01)
[2018-03-28] MEDS: DILTIAZEM-D5W 125MG/125ML DRIP 125 ML IV ×2 (08:04→17:47)
[2018-03-28] MEDS: FOLIC ACID 1 MG TAB PO (08:39)
[2018-03-28] MEDS: GEMFIBROZIL 600 MG TAB PO ×2 (08:39→21:31)
[2018-03-28] MEDS: APIXABAN 5 MG TABLET PO ×2 (08:39→21:32)
[2018-03-28] MEDS: METOPROLOL 100 MG TAB PO ×2 (08:40→21:33)
[2018-03-28] MEDS: predniSONE 20 MG TAB PO (08:40)
[2018-03-28] MEDS: LOSARTAN 25 MG TAB PO ×2 (08:40→21:33)
[2018-03-28] MEDS: carBAMAZepine (XR) 200 MG TABSR PO ×2 (08:41→21:31)
[2018-03-28] MEDS: FLUTICASONE/VILANTEROL 200-25 INH DEVICE INH (08:41)
[2018-03-28 09:14] LABS: B-TYPE NATRIURETIC PEPTIDE 2010 PG/ML (0-125)
[2018-03-28] MEDS: DIGOXIN 0.125 MG TAB PO (13:09)
[2018-03-28] MEDS: ATORVASTATIN 40 MG TAB PO (21:30)
[2018-03-28] MEDS: QUETIAPINE 100 MG TAB PO (21:32)
[2018-03-28] MEDS: MONTELUKAST 10 MG TAB PO (21:32)
[2018-03-28] MEDS: RISPERIDONE 2 MG TAB PO (21:33)
[2018-03-29] MEDS: clonAZEPAM 0.5 MG TAB PO ×4 (00:30→18:22)
[2018-03-29] MEDS: IPRATROPIUM (NEB) 0.5 MG/2.5 ML AMP HHN ×6 (01:16→20:41)
[2018-03-29] MEDS: LEVALBUTEROL (NEB) 1.25 MG/0.5 ML AMP HHN ×6 (01:16→20:41)
[2018-03-29] MEDS: ACCU-CHEK XX (02:04)
[2018-03-29] MEDS: LEVOFLOXACIN 500 MG TAB PO (05:28)
[2018-03-29] MEDS: PANTOPRAZOLE (EC) 40 MG TAB PO (05:28)
[2018-03-29 07:31] LABS: ADD MAN DIFF? NO
[2018-03-29 07:34] LABS: BASOPHILS % 0.2 % (0.0-2.0); EOSINOPHILS # 0.1 10^3/ul (0.0-0.5); EOSINOPHILS % 1.2 % (0.0-7.0); HEMOGLOBIN 9.3 g/dl (12.0-16.0); LYMPHOCYTES # 1.8 10^3/ul (0.8-2.9); LYMPHOCYTES % 33.8 % (15.0-51.0); MEAN CORPUSCULAR VOLUME 90.4 fl (82.0-101.0); MEAN PLATELET VOLUME 9.9 fl (7.4-10.4); MONOCYTE # 0.4 10^3/ul (0.3-0.9); MONOCYTES % 7.4 % (0.0-11.0); PLATELET COUNT 167 10^3/UL (140-415); RED BLOOD COUNT 3.32 10^6/ul (4.20-5.40); RED CELL DISTRIBUTION WIDTH 12.7 % (11.5-14.5)
[2018-03-29 07:34] LABS: WHITE BLOOD COUNT 5.2 10^3/ul (4.8-10.8)
[2018-03-29] MEDS: INSULIN ASPART [NOVOLOG] 3 ML PEN SC ×7 (07:51→20:12)
[2018-03-29 08:07] LABS: ANION GAP 17 (5-13); BLOOD UREA NITROGEN 36 mg/dl (7-20); CALCIUM 8.9 mg/dl (8.4-10.2); CARBON DIOXIDE 22 mmol/L (21-31); CHLORIDE 99 mmol/L (97-110); CREATININE 0.96 mg/dl (0.44-1.00); Estimated GFR 59 mL/min (>60); GLUCOSE 169 mg/dl (70-220); MAGNESIUM 2.1 mg/dl (1.7-2.5); POTASSIUM 4.1 mmol/L (3.5-5.1); SODIUM 138 mmol/L (135-144)
[2018-03-29] MEDS: INSULIN GLARGINE [LANTus] (100 UNITS/ML) SYG SC (08:13)
[2018-03-29] MEDS: LOSARTAN 25 MG TAB PO ×2 (08:14→20:03)
[2018-03-29] MEDS: carBAMAZepine (XR) 200 MG TABSR PO ×2 (08:14→20:01)
[2018-03-29] MEDS: METOPROLOL 100 MG TAB PO ×3 (08:15→20:02)
[2018-03-29] MEDS: APIXABAN 5 MG TABLET PO ×2 (08:15→20:00)
[2018-03-29] MEDS: FOLIC ACID 1 MG TAB PO (08:15)
[2018-03-29] MEDS: predniSONE 20 MG TAB PO (08:15)
[2018-03-29] MEDS: GEMFIBROZIL 600 MG TAB PO ×2 (08:15→20:00)
[2018-03-29] MEDS: FLUTICASONE/VILANTEROL 200-25 INH DEVICE INH (08:38)
[2018-03-29] MEDS: GUAIFENESIN/CODEINE 5ML CUP PO ×2 (12:39→21:49)
[2018-03-29] MEDS: DIGOXIN 0.125 MG TAB PO (12:39)
[2018-03-29] MEDS ORDERED: AMOXICILLIN 500 MG CAP PO (14:00)
[2018-03-29] MEDS: AMOXICILLIN 250 MG CAP PO (14:54)
[2018-03-29] MEDS: CEPASTAT LOZENGE MT (16:12)
[2018-03-29] MEDS ORDERED: DILTIAZEM 30 MG TAB PO (16:30)
[2018-03-29] MEDS: ATORVASTATIN 40 MG TAB PO (20:00)
[2018-03-29] MEDS: QUETIAPINE 100 MG TAB PO (20:01)
[2018-03-29] MEDS: RISPERIDONE 2 MG TAB PO (20:03)
[2018-03-29] MEDS: MONTELUKAST 10 MG TAB PO (20:03)
[2018-03-29] MEDS: AMOXICILLIN 500 MG CAP PO (21:49)
[2018-03-30] MEDS: clonAZEPAM 0.5 MG TAB PO ×5 (00:06→17:35)
[2018-03-30] MEDS: IPRATROPIUM (NEB) 0.5 MG/2.5 ML AMP HHN ×6 (01:12→21:16)
[2018-03-30] MEDS: LEVALBUTEROL (NEB) 1.25 MG/0.5 ML AMP HHN ×6 (01:12→21:16)
[2018-03-30] MEDS: ACCU-CHEK XX (01:29)
[2018-03-30] MEDS: AMOXICILLIN 500 MG CAP PO ×3 (05:44→21:58)
[2018-03-30] MEDS: PANTOPRAZOLE (EC) 40 MG TAB PO (05:44)
[2018-03-30] MEDS: GUAIFENESIN/CODEINE 5ML CUP PO (05:56)
[2018-03-30] MEDS: INSULIN ASPART [NOVOLOG] 3 ML PEN SC ×7 (08:27→21:00)
[2018-03-30] MEDS: METOPROLOL 100 MG TAB PO ×2 (09:00→21:58)
[2018-03-30] MEDS: INSULIN GLARGINE [LANTus] (100 UNITS/ML) SYG SC (09:02)
[2018-03-30] MEDS: FLUTICASONE/VILANTEROL 200-25 INH DEVICE INH (09:03)
[2018-03-30] MEDS: predniSONE 20 MG TAB PO (09:04)
[2018-03-30] MEDS: carBAMAZepine (XR) 200 MG TABSR PO ×2 (09:04→21:57)
[2018-03-30] MEDS: APIXABAN 5 MG TABLET PO (09:04)
[2018-03-30] MEDS: GEMFIBROZIL 600 MG TAB PO ×2 (09:04→21:56)
[2018-03-30] MEDS: LOSARTAN 25 MG TAB PO (09:05)
[2018-03-30] MEDS: FOLIC ACID 1 MG TAB PO (09:05)
[2018-03-30 10:47] LABS: INR 0.99; PROTIME 13.2 Sec (11.9-14.9)
[2018-03-30 10:48] LABS: PARTIAL THROMBOPLASTIN TIME 27.8 Sec (23.0-35.0)
[2018-03-30] MEDS: DIGOXIN 0.125 MG TAB PO (14:09)
[2018-03-30] MEDS: WARFARIN 10 MG TAB PO (17:35)
[2018-03-30] MEDS ORDERED: ENOXAPARIN 100 MG/ML SYG SC (21:00)
[2018-03-30] MEDS: QUETIAPINE 100 MG TAB PO (21:56)
[2018-03-30] MEDS: RISPERIDONE 2 MG TAB PO (21:56)
[2018-03-30] MEDS: ATORVASTATIN 40 MG TAB PO (21:56)
[2018-03-30] MEDS: MONTELUKAST 10 MG TAB PO (21:57)
[2018-03-30] MEDS: ENOXAPARIN 100 MG/ML SYG SC (22:23)
[2018-03-30] MEDS: ENOXAPARIN 30 MG/0.3 ML SYG SC (22:23)
[2018-03-31] MEDS: IPRATROPIUM (NEB) 0.5 MG/2.5 ML AMP HHN ×6 (01:10→20:30)
[2018-03-31] MEDS: LEVALBUTEROL (NEB) 1.25 MG/0.5 ML AMP HHN ×6 (01:10→20:30)
[2018-03-31] MEDS: clonAZEPAM 0.5 MG TAB PO ×4 (01:20→17:30)
[2018-03-31] MEDS: ACCU-CHEK XX (01:26)
[2018-03-31] MEDS: PANTOPRAZOLE (EC) 40 MG TAB PO (05:30)
[2018-03-31] MEDS: AMOXICILLIN 500 MG CAP PO ×3 (05:30→22:12)
[2018-03-31 06:45] LABS: INR 0.94; PROTIME 12.7 Sec (11.9-14.9)
[2018-03-31] MEDS: INSULIN ASPART [NOVOLOG] 3 ML PEN SC ×7 (07:28→22:48)
[2018-03-31] MEDS: INSULIN GLARGINE [LANTus] (100 UNITS/ML) SYG SC (07:42)
[2018-03-31] MEDS: GEMFIBROZIL 600 MG TAB PO ×2 (08:14→22:11)
[2018-03-31] MEDS: LOSARTAN 25 MG TAB PO (08:14)
[2018-03-31] MEDS: FLUTICASONE/VILANTEROL 200-25 INH DEVICE INH (08:15)
[2018-03-31] MEDS: carBAMAZepine (XR) 200 MG TABSR PO ×2 (08:15→22:12)
[2018-03-31] MEDS: FOLIC ACID 1 MG TAB PO (08:15)
[2018-03-31] MEDS: METOPROLOL 100 MG TAB PO ×2 (08:16→22:11)
[2018-03-31] MEDS: ENOXAPARIN 100 MG/ML SYG SC ×2 (08:34→22:48)
[2018-03-31] MEDS: ENOXAPARIN 30 MG/0.3 ML SYG SC ×2 (08:35→22:48)
[2018-03-31] MEDS: WARFARIN 7.5 MG TAB PO (10:21)
[2018-03-31] MEDS: DIGOXIN 0.125 MG TAB PO (12:25)
[2018-03-31] MEDS: ATORVASTATIN 40 MG TAB PO (22:10)
[2018-03-31] MEDS: RISPERIDONE 2 MG TAB PO (22:11)
[2018-03-31] MEDS: QUETIAPINE 100 MG TAB PO (22:12)
[2018-03-31] MEDS: MONTELUKAST 10 MG TAB PO (22:12)
[2018-04-01] MEDS: LEVALBUTEROL (NEB) 1.25 MG/0.5 ML AMP HHN ×6 (00:35→21:15)
[2018-04-01] MEDS: IPRATROPIUM (NEB) 0.5 MG/2.5 ML AMP HHN ×6 (00:36→21:15)
[2018-04-01] MEDS: ACCU-CHEK XX (01:30)
[2018-04-01] MEDS: clonAZEPAM 0.5 MG TAB PO ×4 (01:30→17:44)
[2018-04-01] MEDS: AMOXICILLIN 500 MG CAP PO ×3 (05:27→21:28)
[2018-04-01] MEDS: PANTOPRAZOLE (EC) 40 MG TAB PO (05:27)
[2018-04-01] MEDS: ONDANSETRON 4 MG TAB PO (05:27)
[2018-04-01 06:49] LABS: ADD MAN DIFF? NO
[2018-04-01 06:55] LABS: BASOPHILS % 0.6 % (0.0-2.0); EOSINOPHILS # 0.3 10^3/ul (0.0-0.5); EOSINOPHILS % 4.8 % (0.0-7.0); HEMATOCRIT 31.7 % (37.0-47.0); HEMOGLOBIN 9.7 g/dl (12.0-16.0); LYMPHOCYTES # 2.7 10^3/ul (0.8-2.9); LYMPHOCYTES % 40.3 % (15.0-51.0); MEAN CORPUSCULAR HEMOGLOBIN 27.8 pg (29.0-33.0); MEAN CORPUSCULAR HGB CONC 30.6 g/dl (32.0-37.0); MEAN CORPUSCULAR VOLUME 90.8 fl (82.0-101.0); MEAN PLATELET VOLUME 9.8 fl (7.4-10.4); MONOCYTE # 0.5 10^3/ul (0.3-0.9); MONOCYTES % 6.8 % (0.0-11.0); NEUTROPHIL # 3.1 10^3/ul (1.6-7.5); NEUTROPHILS % 46.9 % (39.0-77.0); PLATELET COUNT 231 10^3/UL (140-415); RED BLOOD COUNT 3.49 10^6/ul (4.20-5.40); RED CELL DISTRIBUTION WIDTH 12.8 % (11.5-14.5)
[2018-04-01 06:55] LABS: WHITE BLOOD COUNT 6.6 10^3/ul (4.8-10.8)
[2018-04-01 07:15] LABS: PROTIME 19.1 Sec (11.9-14.9); PT RATIO 1.5
[2018-04-01 07:17] LABS: ANION GAP 4 (5-13); BLOOD UREA NITROGEN 29 mg/dl (7-20); CALCIUM 9.3 mg/dl (8.4-10.2); CARBON DIOXIDE 29 mmol/L (21-31); CHLORIDE 109 mmol/L (97-110); CREATININE 0.86 mg/dl (0.44-1.00); Estimated GFR > 60 mL/min (>60); GLUCOSE 147 mg/dl (70-220); POTASSIUM 4.9 mmol/L (3.5-5.1); SODIUM 142 mmol/L (135-144)
[2018-04-01] MEDS: FOLIC ACID 1 MG TAB PO (08:14)
[2018-04-01] MEDS: GEMFIBROZIL 600 MG TAB PO ×2 (08:15→21:25)
[2018-04-01] MEDS: LOSARTAN 25 MG TAB PO (08:17)
[2018-04-01] MEDS: METOPROLOL 100 MG TAB PO ×2 (08:17→21:27)
[2018-04-01] MEDS: FLUTICASONE/VILANTEROL 200-25 INH DEVICE INH (08:18)
[2018-04-01] MEDS: carBAMAZepine (XR) 200 MG TABSR PO ×2 (08:18→21:28)
[2018-04-01] MEDS: ENOXAPARIN 100 MG/ML SYG SC ×2 (09:12→21:41)
[2018-04-01] MEDS: ENOXAPARIN 30 MG/0.3 ML SYG SC ×2 (09:12→21:40)
[2018-04-01] MEDS: INSULIN ASPART [NOVOLOG] 3 ML PEN SC ×7 (09:13→21:00)
[2018-04-01] MEDS: INSULIN GLARGINE [LANTus] (100 UNITS/ML) SYG SC (09:15)
[2018-04-01] MEDS ORDERED: WARFARIN 10 MG TAB PO (17:00)
[2018-04-01] MEDS: WARFARIN 5 MG TAB PO (17:20)
[2018-04-01] MEDS: ATORVASTATIN 40 MG TAB PO (21:25)
[2018-04-01] MEDS: QUETIAPINE 100 MG TAB PO (21:27)
[2018-04-01] MEDS: RISPERIDONE 2 MG TAB PO (21:27)
[2018-04-01] MEDS: MONTELUKAST 10 MG TAB PO (21:28)
[2018-04-02] MEDS: clonAZEPAM 0.5 MG TAB PO ×2 (01:20→05:31)
[2018-04-02] MEDS: ACCU-CHEK XX (01:25)
[2018-04-02] MEDS: IPRATROPIUM (NEB) 0.5 MG/2.5 ML AMP HHN ×3 (01:32→09:34)
[2018-04-02] MEDS: LEVALBUTEROL (NEB) 1.25 MG/0.5 ML AMP HHN ×3 (01:32→09:34)
[2018-04-02] MEDS: AMOXICILLIN 500 MG CAP PO (05:27)
[2018-04-02] MEDS: PANTOPRAZOLE (EC) 40 MG TAB PO (05:27)
[2018-04-02 07:08] LABS: INR 2.06; PROTIME 23.3 Sec (11.9-14.9); PT RATIO 1.8
[2018-04-02] MEDS: INSULIN ASPART [NOVOLOG] 3 ML PEN SC ×2 (07:55→08:15)
[2018-04-02] MEDS: GEMFIBROZIL 600 MG TAB PO (08:12)
[2018-04-02] MEDS: carBAMAZepine (XR) 200 MG TABSR PO (08:12)
[2018-04-02] MEDS: METOPROLOL 100 MG TAB PO (08:13)
[2018-04-02] MEDS: FLUTICASONE/VILANTEROL 200-25 INH DEVICE INH (08:13)
[2018-04-02] MEDS: LOSARTAN 25 MG TAB PO (08:13)
[2018-04-02] MEDS: FOLIC ACID 1 MG TAB PO (08:13)
[2018-04-02] MEDS: ENOXAPARIN 100 MG/ML SYG SC (08:15)
[2018-04-02] MEDS: ENOXAPARIN 30 MG/0.3 ML SYG SC (08:15)
[2018-04-02] MEDS: INSULIN GLARGINE [LANTus] (100 UNITS/ML) SYG SC (08:27)
[2018-04-02 10:49] LABS: IRON 61 ug/dl (35-150)
[2018-04-02 10:59] LABS: % IRON SATURATION 25 % SAT (22-52); TOTAL IRON BINDING CAPACITY 246 ug/dl (241-421)
== END 2018-04-02 12:20 | disposition home or self-care (01) | DRG 308 ==
LOC: TEL 04-01 11:51 → E/R 19:51 → TEL 04-01 16:22
DX: I48.92 Unspecified atrial flutter (principal); J96.91 Respiratory failure, unspecified with hypoxia; J45.901 Unspecified asthma with (acute) exacerbation; N17.9 Acute kidney failure, unspecified; Z68.42 Body mass index [BMI] 45.0-49.9, adult; J40 Bronchitis, not specified as acute or chronic; E87.70 Fluid overload, unspecified; I12.9 Hypertensive chronic kidney disease with stage 1 through stage 4 chronic kidney disease, or unspecified chronic kidney disease; J20.9 Acute bronchitis, unspecified; E11.22 Type 2 diabetes mellitus with diabetic chronic kidney disease; E11.65 Type 2 diabetes mellitus with hyperglycemia; N18.9 Chronic kidney disease, unspecified; E66.01 Morbid (severe) obesity due to excess calories; D64.9 Anemia, unspecified; F31.9 Bipolar disorder, unspecified; I48.91 Unspecified atrial fibrillation
CPT/HCPCS: 36415; 71045; 74177; 80048; 80053; 80156; 82550; 82553; 82962; 83036; 83540; 83735; 83880; 84439; 84443; 84481; 84484; 85025; 85610; 85730; 87040; 87880; 93005; 93306; 94640; 94644; 96374; 96375; 97110; 97116; 97162; 97530; 99285-25; G0378

== ENCOUNTER 2018-09-05 20:37 | Inpatient (IN) | payer BC, OTHER ==
[2018-09-05] MEDS: ALBUTEROL 0.083% (NEB) 2.5 MG/3 ML AMP NEB (21:06)
[2018-09-05] MEDS: IPRATROPIUM (NEB) 0.5 MG/2.5 ML AMP NEB (21:06)
[2018-09-05 21:10] LABS: ADD MAN DIFF? NO
[2018-09-05 21:19] LABS: BASOPHILS % 0.2 % (0.0-2.0); EOSINOPHILS % 0.3 % (0.0-7.0); HEMATOCRIT 34.4 % (37.0-47.0); HEMOGLOBIN 11.1 g/dl (12.0-16.0); LYMPHOCYTES % 15.6 % (15.0-51.0); MEAN CORPUSCULAR HEMOGLOBIN 28.6 pg (29.0-33.0); MEAN CORPUSCULAR HGB CONC 32.3 g/dl (32.0-37.0); MEAN CORPUSCULAR VOLUME 88.7 fl (82.0-101.0); MEAN PLATELET VOLUME 9.7 fl (7.4-10.4); MONOCYTE # 0.6 10^3/ul (0.3-0.9); MONOCYTES % 4.5 % (0.0-11.0); NEUTROPHIL # 9.9 10^3/ul (1.6-7.5); NEUTROPHILS % 78.8 % (39.0-77.0); PLATELET COUNT 158 10^3/UL (140-415); RED BLOOD COUNT 3.88 10^6/ul (4.20-5.40); RED CELL DISTRIBUTION WIDTH 12.5 % (11.5-14.5)
[2018-09-05 21:19] LABS: WHITE BLOOD COUNT 12.6 10^3/ul (4.8-10.8)
[2018-09-05 21:35] LABS: INR 0.91; PROTIME 12.4 Sec (11.9-14.9)
[2018-09-05 21:36] LABS: PARTIAL THROMBOPLASTIN TIME 31.8 Sec (23.0-35.0)
[2018-09-05 21:37] LABS: ANION GAP 10 (5-13); BLOOD UREA NITROGEN 16 mg/dl (7-20); CALCIUM 9.2 mg/dl (8.4-10.2); CARBON DIOXIDE 28 mmol/L (21-31); CHLORIDE 100 mmol/L (97-110); CREATININE 0.94 mg/dl (0.44-1.00); Estimated GFR > 60 mL/min (>60); GLUCOSE 378 mg/dl (70-220); POTASSIUM 4.6 mmol/L (3.5-5.1); SODIUM 138 mmol/L (135-144)
[2018-09-05] MEDS: SODIUM CHLORIDE 0.9% 1L BAG IV* ×2 (21:41→21:49)
[2018-09-05] MEDS: CEFTRIAXONE 1 GM/50 ML (PMX) 50 ML IVPB (21:41)
[2018-09-05] MEDS: DEXAMETHASONE 10 MG/ML 1 ML INJ IV (21:42)
[2018-09-05 21:48] LABS: TROPONIN-I < 0.012 ng/ml (0.000-0.120)
[2018-09-05] MEDS: AZITHROMYCIN 500MG/NS (PMX) 250 ML IV (21:49)
[2018-09-05] MEDS ORDERED: DOCUSATE SODIUM 100 MG CAP PO (22:00)
[2018-09-05] MEDS ORDERED: NACL 0.9% 3 ML SYG IV (22:00)
[2018-09-05] MEDS ORDERED: ONDANSETRON 4 MG INJ IV (22:00)
[2018-09-05] MEDS ORDERED: ACETAMINOPHEN 325 MG TAB PO (22:00)
[2018-09-05] MEDS ORDERED: BISACODYL (EC) 5 MG TAB PO (22:00)
[2018-09-05 22:09] LABS: B-TYPE NATRIURETIC PEPTIDE 1090 PG/ML (0-125)
[2018-09-05] MEDS: carBAMAZepine (XR) 200 MG TABSR PO (22:46)
[2018-09-05] MEDS: clonAZEPAM 0.5 MG TAB PO (22:46)
[2018-09-05] MEDS ORDERED: GLUCOSE GEL 15 GRAM TUBE BUCCAL (23:00)
[2018-09-05] MEDS ORDERED: GLUCOSE GEL 15 GRAM TUBE PO ×2 (23:00)
[2018-09-05] MEDS ORDERED: GLUCAGON 1 MG INJ IM (23:00)
[2018-09-05] MEDS ORDERED: DEXTROSE 50% 50 ML SYRINGE IV ×2 (23:00)
[2018-09-05] MEDS: LOSARTAN 25 MG TAB PO (23:04)
[2018-09-05] MEDS: LEVALBUTEROL (NEB) 1.25 MG/0.5 ML AMP HHN (23:25)
[2018-09-05] MEDS: IPRATROPIUM (NEB) 0.5 MG/2.5 ML AMP HHN (23:25)
[2018-09-06 00:09] LABS: LACTIC ACID 2.2 mmol/L (0.5-2.0)
[2018-09-06] MEDS: IPRATROPIUM (NEB) 0.5 MG/2.5 ML AMP HHN ×5 (01:20→20:38)
[2018-09-06] MEDS: LEVALBUTEROL (NEB) 1.25 MG/0.5 ML AMP HHN ×5 (01:20→20:39)
[2018-09-06] MEDS: SOD CHLORIDE 0.9% 500 ML IV (01:31)
[2018-09-06] MEDS: INSULIN ASPART [NOVOLOG] 3 ML PEN SC ×10 (01:32→20:51)
[2018-09-06] MEDS: ACCU-CHEK XX ×4 (01:34→23:02)
[2018-09-06 01:40] LABS: LACTIC ACID 1.7 mmol/L (0.5-2.0)
[2018-09-06] MEDS: INSULIN GLARGINE [LANTus] (100 UNITS/ML) SYG SC (03:08)
[2018-09-06] MEDS: clonAZEPAM 0.5 MG TAB PO ×4 (04:32→22:00)
[2018-09-06] MEDS: PANTOPRAZOLE (EC) 40 MG TAB PO (05:27)
[2018-09-06 05:37] LABS: HEMATOCRIT 30.7 % (37.0-47.0); HEMOGLOBIN 9.7 g/dl (12.0-16.0); MEAN CORPUSCULAR HEMOGLOBIN 28.8 pg (29.0-33.0); MEAN CORPUSCULAR HGB CONC 31.6 g/dl (32.0-37.0); MEAN CORPUSCULAR VOLUME 91.1 fl (82.0-101.0); MEAN PLATELET VOLUME 10.1 fl (7.4-10.4); PLATELET COUNT 145 10^3/UL (140-415); RED BLOOD COUNT 3.37 10^6/ul (4.20-5.40); RED CELL DISTRIBUTION WIDTH 12.7 % (11.5-14.5)
[2018-09-06 05:46] LABS: ADD MAN DIFF? YES; POSITIVE DIFF @See below
[2018-09-06] MEDS ORDERED: VANCOMYCIN IV PER PHARMACY XX (06:00)
[2018-09-06 06:20] LABS: DIGOXIN 0.6 ng/ml (1.0-2.0)
[2018-09-06 06:35] LABS: ALANINE AMINOTRANSFERASE 28 IU/L (13-69); ALBUMIN 3.3 g/dl (3.3-4.9); ALKALINE PHOSPHATASE 162 IU/L (42-121); ANION GAP 10 (5-13); ASPARTATE AMINO TRANSFERASE 17 IU/L (15-46); BILIRUBIN,INDIRECT 0.3 mg/dl (0-1.1); BILIRUBIN,TOTAL 0.3 mg/dl (0.2-1.3); BLOOD UREA NITROGEN 19 mg/dl (7-20); CALCIUM 8.4 mg/dl (8.4-10.2); CARBON DIOXIDE 25 mmol/L (21-31); CHLORIDE 105 mmol/L (97-110); Estimated GFR 51 mL/min (>60); MAGNESIUM 1.4 mg/dl (1.7-2.5); POTASSIUM 5.7 mmol/L (3.5-5.1); SODIUM 140 mmol/L (135-144); TOTAL PROTEIN 6.6 g/dl (6.1-8.1)
[2018-09-06 06:45] LABS: GLUCOSE 494 mg/dl (70-220)
[2018-09-06 07:07] LABS: CARBAMAZEPINE (TEGRETOL) 9.1 ug/ml (8.0-12.0)
[2018-09-06 07:20] LABS: ANISOCYTOSIS 1+ (0-0); BAND NEUTROPHILS % (M) 17 % (0-4); LYMPHOCYTES #M 0.6 10^3/ul (0.8-2.9); LYMPHOCYTES % (M) 5 % (15-51); MONOCYTE #M 0.3 10^3/ul (0.3-0.9); MONOCYTES % (M) 3 % (0-11); PLATELET ESTIMATE NORMAL; SEG NEUT #M 9.2 10^3/ul (1.6-7.5); SEGMENTED NEUTROPHILS (M) % 75 % (39-77); SMUDGE%M 24 % (0-0)
[2018-09-06 07:28] LABS: THYROID STIMULATING HORMONE 0.248 MIU/L (0.465-4.680)
[2018-09-06 07:32] LABS: HEMOGLOBIN A1C 7.7 % (0-5.9)
[2018-09-06] MEDS ORDERED: INSULIN GLARGINE 38 UNIT SC (08:00)
[2018-09-06] MEDS ORDERED: INSULIN GLARGINE [LANTus] (100 UNITS/ML) SYG SC ×2 (08:00)
[2018-09-06] MEDS: INSULIN REGULAR, HUMAN 100 UNIT/1 ML 3ML VIAL IV (08:00)
[2018-09-06] MEDS ORDERED: INSULIN ASPART [NOVOLOG] 3 ML PEN SC (08:00)
[2018-09-06] MEDS: FLUTICASONE/VILANTEROL 200-25 INH DEVICE INH (08:44)
[2018-09-06] MEDS: carBAMAZepine (XR) 200 MG TABSR PO ×2 (08:45→20:21)
[2018-09-06] MEDS: CALCIUM CARBONATE 1.25 GM TAB PO (08:45)
[2018-09-06] MEDS: FOLIC ACID 1 MG TAB PO (08:45)
[2018-09-06] MEDS: APIXABAN 5 MG TABLET PO ×2 (08:45→20:21)
[2018-09-06] MEDS: GEMFIBROZIL 600 MG TAB PO ×2 (08:45→20:21)
[2018-09-06] MEDS: LOSARTAN 25 MG TAB PO ×2 (09:00→20:22)
[2018-09-06 09:15] LABS: LACTIC ACID 2.4 mmol/L (0.5-2.0)
[2018-09-06] MEDS: PIPER-TAZO 3.375 GM IV (PMX) 100 ML IVPB ×3 (09:37→17:24)
[2018-09-06 09:44] LABS: AADO2 Arterial 54.7 mmHg (7.0-24.0); Allen Test ACCEPTAB; Arterial Base Excess 0 mmol/L (-3.0-3); Arterial Blood Gas Oxygen Sat 98.4 mmHG (95.0-98.0); Arterial COHb 0.4 % (0.0-3.0); Arterial Fraction of Oxyhgb 97.6 % (93.0-99.0); Arterial HCO3 25.4 mmol/L (22.0-26.0); Arterial MetHb 0.4 % (0.0-1.5); Arterial pCO2 44.7 mmhg (35-45); MODE NASAL CANNULA; Site Right Radial
[2018-09-06] MEDS: VANCOMYCIN HCL 2 GM in SOD CHLORIDE 0.9% 500 ML IVPB (10:24)
[2018-09-06] MEDS: predniSONE 20 MG TAB PO (10:39)
[2018-09-06] MEDS: NPH, HUMAN INSULIN ISOPHANE 3ML VIAL SC (10:40)
[2018-09-06] MEDS: MAGNESIUM SULFATE 3 GM in DEXTROSE 5% 100 ML IVPB (12:13)
[2018-09-06] MEDS: DIGOXIN 0.125 MG TAB PO (14:49)
[2018-09-06 17:00] LABS: ADD UMIC NO; UR ASCORBIC ACID NEGATIVE (NEGATIVE); UR BILIRUBIN (Dip) NEGATIVE (NEGATIVE); UR BLOOD (Dip) NEGATIVE (NEGATIVE); UR CLARITY CLEAR (CLEAR); UR COLOR YELLOW (YELLOW); UR GLUCOSE (Dip) 3+ mg/dL (NEGATIVE); UR KETONES (Dip) NEGATIVE (NEGATIVE); UR LEUKOCYTE ESTERASE (Dip) NEGATIVE Leu/ul (NEGATIVE); UR NITRITE (Dip) NEGATIVE (NEGATIVE); UR SPECIFIC GRAVITY (Dip) 1.007 (1.003-1.030); UR TOTAL PROTEIN (Dip) NEGATIVE (NEGATIVE); UR UROBILINOGEN (Dip) NEGATIVE (NEGATIVE)
[2018-09-06] MEDS ORDERED: AZITHROMYCIN 500MG/NS (PMX) 250 ML IVPB (20:00)
[2018-09-06] MEDS: ATORVASTATIN 40 MG TAB PO (20:21)
[2018-09-06] MEDS: QUETIAPINE 100 MG TAB PO (20:21)
[2018-09-06] MEDS: MONTELUKAST 10 MG TAB PO (20:21)
[2018-09-06] MEDS: RISPERIDONE 2 MG TAB PO (20:21)
[2018-09-06] MEDS ORDERED: CEFTRIAXONE 1 GM/50 ML (PMX) 50 ML IVPB (21:00)
[2018-09-07] MEDS: IPRATROPIUM (NEB) 0.5 MG/2.5 ML AMP HHN ×6 (01:19→20:16)
[2018-09-07] MEDS: LEVALBUTEROL (NEB) 1.25 MG/0.5 ML AMP HHN ×6 (01:19→20:16)
[2018-09-07] MEDS: PIPER-TAZO 3.375 GM IV (PMX) 100 ML IVPB ×3 (01:34→11:51)
[2018-09-07] MEDS: SOD CHLORIDE 0.9% 500 ML IV (01:37)
[2018-09-07] MEDS: ACCU-CHEK XX ×2 (01:41)
[2018-09-07] MEDS: clonAZEPAM 0.5 MG TAB PO ×4 (03:10→21:34)
[2018-09-07] MEDS: PANTOPRAZOLE (EC) 40 MG TAB PO (05:08)
[2018-09-07 05:38] LABS: ADD MAN DIFF? NO
[2018-09-07 05:42] LABS: BASOPHILS % 0.2 % (0.0-2.0); EOSINOPHILS # 0.1 10^3/ul (0.0-0.5); EOSINOPHILS % 0.7 % (0.0-7.0); HEMATOCRIT 28.3 % (37.0-47.0); HEMOGLOBIN 9.1 g/dl (12.0-16.0); LYMPHOCYTES # 1.5 10^3/ul (0.8-2.9); LYMPHOCYTES % 14.1 % (15.0-51.0); MEAN CORPUSCULAR HEMOGLOBIN 29.4 pg (29.0-33.0); MEAN CORPUSCULAR HGB CONC 32.2 g/dl (32.0-37.0); MEAN CORPUSCULAR VOLUME 91.6 fl (82.0-101.0); MEAN PLATELET VOLUME 10.1 fl (7.4-10.4); MONOCYTE # 0.7 10^3/ul (0.3-0.9); NEUTROPHILS % 77.4 % (39.0-77.0); PLATELET COUNT 153 10^3/UL (140-415); RED BLOOD COUNT 3.09 10^6/ul (4.20-5.40); RED CELL DISTRIBUTION WIDTH 12.6 % (11.5-14.5)
[2018-09-07 05:42] LABS: WHITE BLOOD COUNT 10.3 10^3/ul (4.8-10.8)
[2018-09-07 06:11] LABS: ALANINE AMINOTRANSFERASE 21 IU/L (13-69); ALBUMIN 3.2 g/dl (3.3-4.9); ALBUMIN/GLOBULIN RATIO 0.94; ALKALINE PHOSPHATASE 138 IU/L (42-121); ANION GAP 7 (5-13); ASPARTATE AMINO TRANSFERASE 14 IU/L (15-46); BILIRUBIN,INDIRECT 0.2 mg/dl (0-1.1); BILIRUBIN,TOTAL 0.2 mg/dl (0.2-1.3); BLOOD UREA NITROGEN 25 mg/dl (7-20); CALCIUM 8.8 mg/dl (8.4-10.2); CARBON DIOXIDE 28 mmol/L (21-31); CHLORIDE 108 mmol/L (97-110); CREATININE 0.94 mg/dl (0.44-1.00); Estimated GFR > 60 mL/min (>60); GLUCOSE 182 mg/dl (70-220); POTASSIUM 4.5 mmol/L (3.5-5.1); SODIUM 143 mmol/L (135-144); TOTAL PROTEIN 6.6 g/dl (6.1-8.1)
[2018-09-07] MEDS: VANCOMYCIN HCL 1.5 GM in SOD CHLORIDE 0.9% 250 ML IVPB (06:32)
[2018-09-07] MEDS: INSULIN ASPART [NOVOLOG] 3 ML PEN SC ×7 (07:50→21:21)
[2018-09-07] MEDS: INSULIN GLARGINE [LANTus] (100 UNITS/ML) SYG SC (07:54)
[2018-09-07] MEDS: CALCIUM CARBONATE 1.25 GM TAB PO (09:15)
[2018-09-07] MEDS: APIXABAN 5 MG TABLET PO ×2 (09:15→20:38)
[2018-09-07] MEDS: LOSARTAN 25 MG TAB PO ×2 (09:15→20:40)
[2018-09-07] MEDS: carBAMAZepine (XR) 200 MG TABSR PO ×2 (09:15→20:39)
[2018-09-07] MEDS: FOLIC ACID 1 MG TAB PO (09:15)
[2018-09-07] MEDS: GEMFIBROZIL 600 MG TAB PO ×2 (09:15→20:40)
[2018-09-07] MEDS: FLUTICASONE/VILANTEROL 200-25 INH DEVICE INH (09:19)
[2018-09-07] MEDS: DIGOXIN 0.125 MG TAB PO (12:33)
[2018-09-07] MEDS: CEFTRIAXONE 1 GM/50 ML (PMX) 50 ML IVPB (17:02)
[2018-09-07] MEDS: AZITHROMYCIN 500MG/NS (PMX) 250 ML IVPB (17:56)
[2018-09-07] MEDS: MONTELUKAST 10 MG TAB PO (20:39)
[2018-09-07] MEDS: RISPERIDONE 2 MG TAB PO (20:39)
[2018-09-07] MEDS: ATORVASTATIN 40 MG TAB PO (20:40)
[2018-09-07] MEDS: QUETIAPINE 100 MG TAB PO (20:40)
[2018-09-07] MEDS: DOCUSATE SODIUM 100 MG CAP PO (23:47)
[2018-09-07] MEDS: POLYETHYLENE GLYCOL 17 GM PACKET PO (23:47)
[2018-09-08] MEDS: IPRATROPIUM (NEB) 0.5 MG/2.5 ML AMP HHN ×5 (00:59→20:31)
[2018-09-08] MEDS: LEVALBUTEROL (NEB) 1.25 MG/0.5 ML AMP HHN ×5 (00:59→20:31)
[2018-09-08] MEDS: ACCU-CHEK XX (02:21)
[2018-09-08] MEDS: clonAZEPAM 0.5 MG TAB PO ×4 (04:44→21:15)
[2018-09-08] MEDS: PANTOPRAZOLE (EC) 40 MG TAB PO (05:51)
[2018-09-08 06:25] LABS: ADD MAN DIFF? NO
[2018-09-08 06:33] LABS: WHITE BLOOD COUNT 7.4 10^3/ul (4.8-10.8)
[2018-09-08 06:33] LABS: BASOPHILS % 0.3 % (0.0-2.0); EOSINOPHILS # 0.2 10^3/ul (0.0-0.5); EOSINOPHILS % 2.6 % (0.0-7.0); HEMATOCRIT 29.6 % (37.0-47.0); HEMOGLOBIN 9.2 g/dl (12.0-16.0); LYMPHOCYTES # 1.9 10^3/ul (0.8-2.9); LYMPHOCYTES % 25.8 % (15.0-51.0); MEAN CORPUSCULAR HEMOGLOBIN 28.9 pg (29.0-33.0); MEAN CORPUSCULAR HGB CONC 31.1 g/dl (32.0-37.0); MEAN CORPUSCULAR VOLUME 93.1 fl (82.0-101.0); MEAN PLATELET VOLUME 10.3 fl (7.4-10.4); MONOCYTE # 0.6 10^3/ul (0.3-0.9); MONOCYTES % 8.1 % (0.0-11.0); NEUTROPHIL # 4.7 10^3/ul (1.6-7.5); NEUTROPHILS % 62.7 % (39.0-77.0); PLATELET COUNT 159 10^3/UL (140-415); RED BLOOD COUNT 3.18 10^6/ul (4.20-5.40); RED CELL DISTRIBUTION WIDTH 12.8 % (11.5-14.5)
[2018-09-08 06:54] LABS: ALANINE AMINOTRANSFERASE 25 IU/L (13-69); ALBUMIN 3.1 g/dl (3.3-4.9); ALBUMIN/GLOBULIN RATIO 0.88; ALKALINE PHOSPHATASE 155 IU/L (42-121); ANION GAP 7 (5-13); ASPARTATE AMINO TRANSFERASE 17 IU/L (15-46); BILIRUBIN,INDIRECT 0.2 mg/dl (0-1.1); BILIRUBIN,TOTAL 0.2 mg/dl (0.2-1.3); BLOOD UREA NITROGEN 25 mg/dl (7-20); CARBON DIOXIDE 28 mmol/L (21-31); CHLORIDE 107 mmol/L (97-110); CREATININE 0.99 mg/dl (0.44-1.00); Estimated GFR 57 mL/min (>60); GLUCOSE 204 mg/dl (70-220); SODIUM 142 mmol/L (135-144); TOTAL PROTEIN 6.6 g/dl (6.1-8.1)
[2018-09-08] MEDS: INSULIN GLARGINE [LANTus] (100 UNITS/ML) SYG SC (08:00)
[2018-09-08] MEDS: INSULIN ASPART [NOVOLOG] 3 ML PEN SC ×7 (08:00→21:00)
[2018-09-08] MEDS: FOLIC ACID 1 MG TAB PO (08:28)
[2018-09-08] MEDS: DOCUSATE SODIUM 100 MG CAP PO ×2 (08:29→21:16)
[2018-09-08] MEDS: FLUTICASONE/VILANTEROL 200-25 INH DEVICE INH (08:29)
[2018-09-08] MEDS: APIXABAN 5 MG TABLET PO ×2 (08:29→21:16)
[2018-09-08] MEDS: GEMFIBROZIL 600 MG TAB PO ×2 (08:29→21:16)
[2018-09-08] MEDS: POLYETHYLENE GLYCOL 17 GM PACKET PO (08:29)
[2018-09-08] MEDS: CALCIUM CARBONATE 1.25 GM TAB PO (08:29)
[2018-09-08] MEDS: LOSARTAN 25 MG TAB PO ×2 (08:29→21:17)
[2018-09-08] MEDS: carBAMAZepine (XR) 200 MG TABSR PO ×2 (08:29→21:17)
[2018-09-08] MEDS: hydrALAzine 20 MG INJ IV (10:16)
[2018-09-08] MEDS: DIGOXIN 0.125 MG TAB PO (13:27)
[2018-09-08] MEDS: CEFTRIAXONE 1 GM/50 ML (PMX) 50 ML IVPB (16:42)
[2018-09-08] MEDS: AZITHROMYCIN 500MG/NS (PMX) 250 ML IVPB (17:34)
[2018-09-08] MEDS: ATORVASTATIN 40 MG TAB PO (21:16)
[2018-09-08] MEDS: QUETIAPINE 100 MG TAB PO (21:16)
[2018-09-08] MEDS: RISPERIDONE 2 MG TAB PO (21:16)
[2018-09-08] MEDS: MONTELUKAST 10 MG TAB PO (21:16)
[2018-09-09] MEDS: LEVALBUTEROL (NEB) 1.25 MG/0.5 ML AMP HHN ×6 (00:11→20:50)
[2018-09-09] MEDS: IPRATROPIUM (NEB) 0.5 MG/2.5 ML AMP HHN ×6 (00:11→20:50)
[2018-09-09] MEDS: ACCU-CHEK XX (02:00)
[2018-09-09] MEDS: clonAZEPAM 0.5 MG TAB PO ×4 (04:05→21:09)
[2018-09-09 05:49] LABS: ADD MAN DIFF? NO
[2018-09-09 05:53] LABS: WHITE BLOOD COUNT 6.7 10^3/ul (4.8-10.8)
[2018-09-09 05:53] LABS: BASOPHILS % 0.4 % (0.0-2.0); EOSINOPHILS # 0.2 10^3/ul (0.0-0.5); EOSINOPHILS % 2.8 % (0.0-7.0); HEMATOCRIT 30.7 % (37.0-47.0); HEMOGLOBIN 9.6 g/dl (12.0-16.0); LYMPHOCYTES # 1.8 10^3/ul (0.8-2.9); LYMPHOCYTES % 26.7 % (15.0-51.0); MEAN CORPUSCULAR HEMOGLOBIN 29.2 pg (29.0-33.0); MEAN CORPUSCULAR HGB CONC 31.3 g/dl (32.0-37.0); MEAN CORPUSCULAR VOLUME 93.3 fl (82.0-101.0); MEAN PLATELET VOLUME 9.6 fl (7.4-10.4); MONOCYTE # 0.5 10^3/ul (0.3-0.9); NEUTROPHIL # 4.2 10^3/ul (1.6-7.5); NEUTROPHILS % 61.8 % (39.0-77.0); PLATELET COUNT 176 10^3/UL (140-415); RED BLOOD COUNT 3.29 10^6/ul (4.20-5.40); RED CELL DISTRIBUTION WIDTH 12.5 % (11.5-14.5)
[2018-09-09] MEDS: PANTOPRAZOLE (EC) 40 MG TAB PO (06:05)
[2018-09-09 06:14] LABS: ALANINE AMINOTRANSFERASE 28 IU/L (13-69); ALBUMIN 3.3 g/dl (3.3-4.9); ALBUMIN/GLOBULIN RATIO 0.84; ALKALINE PHOSPHATASE 176 IU/L (42-121); ANION GAP 6 (5-13); ASPARTATE AMINO TRANSFERASE 18 IU/L (15-46); BILIRUBIN,INDIRECT 0.3 mg/dl (0-1.1); BILIRUBIN,TOTAL 0.3 mg/dl (0.2-1.3); BLOOD UREA NITROGEN 23 mg/dl (7-20); CALCIUM 9.6 mg/dl (8.4-10.2); CARBON DIOXIDE 31 mmol/L (21-31); CHLORIDE 104 mmol/L (97-110); CREATININE 0.93 mg/dl (0.44-1.00); Estimated GFR > 60 mL/min (>60); GLUCOSE 197 mg/dl (70-220); POTASSIUM 5.1 mmol/L (3.5-5.1); SODIUM 141 mmol/L (135-144); TOTAL PROTEIN 7.2 g/dl (6.1-8.1)
[2018-09-09] MEDS: INSULIN ASPART [NOVOLOG] 3 ML PEN SC ×7 (07:46→21:52)
[2018-09-09] MEDS: INSULIN GLARGINE [LANTus] (100 UNITS/ML) SYG SC (07:49)
[2018-09-09] MEDS: DOCUSATE SODIUM 100 MG CAP PO ×2 (09:01→21:10)
[2018-09-09] MEDS: GEMFIBROZIL 600 MG TAB PO ×2 (09:01→21:09)
[2018-09-09] MEDS: CALCIUM CARBONATE 1.25 GM TAB PO (09:01)
[2018-09-09] MEDS: carBAMAZepine (XR) 200 MG TABSR PO ×2 (09:01→21:09)
[2018-09-09] MEDS: POLYETHYLENE GLYCOL 17 GM PACKET PO (09:01)
[2018-09-09] MEDS: APIXABAN 5 MG TABLET PO ×2 (09:01→21:10)
[2018-09-09] MEDS: FOLIC ACID 1 MG TAB PO (09:02)
[2018-09-09] MEDS: LOSARTAN 25 MG TAB PO ×2 (09:03→21:10)
[2018-09-09] MEDS: FLUTICASONE/VILANTEROL 200-25 INH DEVICE INH (09:03)
[2018-09-09] MEDS: DIGOXIN 0.125 MG TAB PO (14:02)
[2018-09-09] MEDS: CEFTRIAXONE 1 GM/50 ML (PMX) 50 ML IVPB (16:44)
[2018-09-09] MEDS: AZITHROMYCIN 500 MG TAB PO (18:09)
[2018-09-09] MEDS: QUETIAPINE 100 MG TAB PO (21:09)
[2018-09-09] MEDS: MONTELUKAST 10 MG TAB PO (21:09)
[2018-09-09] MEDS: RISPERIDONE 2 MG TAB PO (21:09)
[2018-09-09] MEDS: ATORVASTATIN 40 MG TAB PO (21:10)
[2018-09-10] MEDS: LEVALBUTEROL (NEB) 1.25 MG/0.5 ML AMP HHN ×5 (00:01→17:00)
[2018-09-10] MEDS: IPRATROPIUM (NEB) 0.5 MG/2.5 ML AMP HHN ×5 (00:01→17:00)
[2018-09-10] MEDS: ACCU-CHEK XX (01:44)
[2018-09-10] MEDS: clonAZEPAM 0.5 MG TAB PO ×3 (04:33→16:00)
[2018-09-10] MEDS: PANTOPRAZOLE (EC) 40 MG TAB PO (06:04)
[2018-09-10] MEDS: INSULIN ASPART [NOVOLOG] 3 ML PEN SC ×4 (08:08→12:44)
[2018-09-10] MEDS: LOSARTAN 25 MG TAB PO (08:23)
[2018-09-10] MEDS: CALCIUM CARBONATE 1.25 GM TAB PO (08:23)
[2018-09-10] MEDS: GEMFIBROZIL 600 MG TAB PO (08:23)
[2018-09-10] MEDS: POLYETHYLENE GLYCOL 17 GM PACKET PO (08:23)
[2018-09-10] MEDS: FLUTICASONE/VILANTEROL 200-25 INH DEVICE INH (08:24)
[2018-09-10] MEDS: FOLIC ACID 1 MG TAB PO (08:24)
[2018-09-10] MEDS: APIXABAN 5 MG TABLET PO (08:24)
[2018-09-10] MEDS: DOCUSATE SODIUM 100 MG CAP PO (08:24)
[2018-09-10] MEDS: carBAMAZepine (XR) 200 MG TABSR PO (08:24)
[2018-09-10] MEDS: INSULIN GLARGINE [LANTus] (100 UNITS/ML) SYG SC (08:26)
[2018-09-10] MEDS: DIGOXIN 0.125 MG TAB PO (12:13)
[2018-09-10] MEDS: CEFTRIAXONE 1 GM/50 ML (PMX) 50 ML IVPB (16:30)
== END 2018-09-10 17:16 | disposition home health service (06) | DRG 871 ==
LOC: 6WM 21:48 → E/R 20:37
DX: A41.9 Sepsis, unspecified organism (principal); J18.9 Pneumonia, unspecified organism; Z68.42 Body mass index [BMI] 45.0-49.9, adult; I48.92 Unspecified atrial flutter; J45.901 Unspecified asthma with (acute) exacerbation; E11.8 Type 2 diabetes mellitus with unspecified complications; E66.01 Morbid (severe) obesity due to excess calories; I48.0 Paroxysmal atrial fibrillation; F31.9 Bipolar disorder, unspecified; E78.5 Hyperlipidemia, unspecified; D64.9 Anemia, unspecified; I10 Essential (primary) hypertension; Z79.4 Long term (current) use of insulin
CPT/HCPCS: 36415; 36600; 71045; 80048; 80053; 80156; 80162; 81003; 82803; 82962; 83036; 83605; 83735; 83880; 84443; 84484; 85025; 85610; 85730; 87040-91; 87086; 93005; 94640; 94660; 94664; 96374; 96375; 97116; 97162; 97530; 99285-25